=== PATIENT | female | born 1935 | race Caucasian/White ===

== ENCOUNTER 2018-09-08 17:55 | Inpatient (IN) | payer OTHER, BC ==
--- NOTE | 2018-09-08 18:54 | PDOC ---
Rapid Medical Evaluation Time Seen by Provider: 09/08/18 18:50 Medical Evaluation: Allergies Allergy/AdvReac Type Severity Reaction Status Date / Time sulfamethoxazole Allergy Verified 11/13/15 17:01 [From Bactrim] trimethoprim [From Bactrim] Allergy Verified 11/13/15 17:01 [id number] Allergy Severe Rash Uncoded 11/10/15 10:14 09/08/18 18:50 I have performed a brief in-person evaluation of this patient. The patient presents with a chief complaint of: sent by pmd for pneumonia. Patient reports lethargy and fever, recently treated for virus but still not better. Seen by md today' Denies coughing or shortness of breath or pain in upper back Pertinent physical exam findings are: NAD clear lungs bilaterally, diminished on bases Heart s1s2 I have ordered the following: chest xray The patient will proceed to the ED for further evaluation. Discharge Disposition - Referrals Referrals: González Johnson MD [Primary Care Provider] - - Patient Instructions - Post Discharge Activity
--- NOTE | 2018-09-08 19:38 | PDOC ---
Attending Attestation - Resident Resident Name: Dilan Alvarez - ED Attending Attestation I have performed the following: I have examined & evaluated the patient, The case was reviewed & discussed with the resident, I agree w/resident's findings & plan, Exceptions are as noted - Medical Decision Making 09/08/18 21:10 83 yo F sent to the ER for admission She was seen by her PMD today due to shortness of breath and cough 09/08/18 21:13 Selected Entries 09/08/18 18:53 Temperature 98.9 F Pulse Rate 94 H O2 Sat by Pulse 99 Oximetry (%) CXR : right sided pneumonia Will plan to admit per PMDs request <Evita Becerra - Last Filed: 09/08/18 21:10> - HPI HPI: 09/08/18 21:57 The patient is a 83 year old female, with a significant PMH of hypertension, hyperlipidemia, CAD, MIstents (2014) who presents to the emergency department with pneumonia . the patient states that she had been experiencing fevers and chills at home for about 10 days. She states that she went to see her PMD (Dr. Johnson) earlier today by which he told her that she had pneumonia and she should come in for further evaluation. She denies any wheezing, or cough. She denies any other symptoms. She denies any nausea, vomiting, diarrhea, constipation or urinary symptoms. She denies any chest pain, shortness of breath , headache or dizziness. The patient denies any other complaints. PCP: Dr. Johnson - Physicial Exam PE: 09/08/18 21:57 GENERAL: The patient is in no acute distress. NECK: Normal range of motion, supple without lymphadenopathy, JVD, or masses. LUNGS: Breath sounds equal, clear to auscultation bilaterally. No wheezes, and no crackles. HEART:Regular rate and rhythm, normal S1 and S2 without murmur, rub or gallop. ABDOMEN: Soft, nontender, normoactive bowel sounds. No guarding, no rebound. No masses palpable. EXTREMITIES: Normal range of motion, no edema. No clubbing or cyanosis. No erythema, or tenderness. NEUROLOGICAL: Cranial nerves II through XII grossly intact. Normal speech. No focal neurological deficits. MUSCULOSKELETAL: Back non-tender to palpation, no CVA tenderness SKIN: Warm, Dry, normal turgor, no rashes or lesions noted. Documentation prepared by Malcolm Zapata, acting as medical territory manager for Evita Becerra MD. <Malcolm Zapata - Last Filed: 09/08/18 21:57>
--- NOTE | 2018-09-08 19:39 | PDOC ---
History of Present Illness - General Chief Complaint: Respiratory Stated Complaint: WEAKNESS, PNEUMONIA Time Seen by Provider: 09/08/18 18:50 - History of Present Illness Initial Comments: 09/08/18 19:38 83 yo F with h/o HTN, HLD, CAD, [place] s/p stent placement (2015), CVA (2014) referred to ED by PMD for suspected PNA. Patient states that she has been experiencing fevers and chills beginning 08/29/18 (100.6 Tmax). Also endorses fatigue beginning at time of fevers. No identifiable triggers or alleviators. Recently seen at PMD today, and received call back from Dr. Johnson (PMD) for PNA seen on CXR taken today. Patient referred to ED by PMD. No recent sick contacts, hospital admissions. Tylenol daily with improvement in symptoms. Patient reports feeling better today than previous days. Patient denies N/V,night sweats, cough, palpitations, orthopnea, PND, leg pain/ swelling, CP, SOB, urinary complaints, abdominal pain, diarrhea, constipation, lightheadedness, weakness, sensory changes. PMHx: as noted above ROS: as noted SHx: Denies tobacco, IVDA. Social Etoh. Allergies: Bactrim -Hives PMD: Elizabeth Claudio Past History - Past Medical History Allergies/Adverse Reactions: Allergies Allergy/AdvReac Type Severity Reaction Status Date / Time trimethoprim [From Bactrim] Allergy Verified 09/08/18 18:53 Home Medications: Ambulatory Orders Sennosides [Senna] 8.6 mg PO DAILY PRN 09/11/13 Simvastatin [Zocor -] 20 mg PO HS 09/11/13 Metoprolol Tartrate [Lopressor -] 25 mg PO DAILY 02/27/15 Aspirin [Aspirin EC] 81 mg PO DAILY 11/10/15 Calcium Crb,Cit/D3/Min34/Lyla [Citracal + Bone Density Tablet] 1 each PO DAILY 11/10/15 Famotidine [Pepcid -] 10 mg PO DAILY 11/10/15 Multivit-Min/Iron/Folic/Lutein [Centrum Silver Women Tablet] 1 each PO DAILY Oxycodone HCl/Acetaminophen [Percocet 5-325 mg Tablet -] 1 tab PO Q4H PRN #20 tablet 11/13/15 Anemia: No Asthma: No Cancer: Yes (LEFT COLON) Cardiac Disorders: Yes ([place]) CVA: Yes ("mini") COPD: No Disorders: No HTN: Yes Hypercholesterolemia: Yes Liver Disease: No Thyroid Disease: No Other medical history: cardiac stent 02/2016 [facility] - Surgical History Abdominal Surgery: Yes (LEFT COLON RESECTION) Orthopedic Surgery: Yes (BILAT KNEE REPLACEMENTS) - Suicide/Smoking/Psychosocial Hx Smoking Status: No Smoking History: Never smoked Have you smoked in the past 12 months: No Number of Cigarettes Smoked Daily: 0 Hx Alcohol Use: No Drug/Substance Use Hx: No Substance Use Type: None Hx Substance Use Treatment: No Review of Systems - Review of Systems Comments:: 09/08/18 19:38 GENERAL/CONSTITUTIONAL: + Fatigue, No fever or chills. No weakness. HEAD, EYES, EARS, NOSE AND THROAT: No change in vision. No ear pain or discharge. No sore throat. CARDIOVASCULAR: No chest pain or shortness of breath RESPIRATORY: No cough, wheezing, or hemoptysis. GASTROINTESTINAL: No nausea, vomiting, diarrhea or constipation. GENITOURINARY: No dysuria, frequency, or change in urination. MUSCULOSKELETAL: No joint or muscle swelling or pain. No neck or back pain. SKIN: No rash NEUROLOGIC: No headache, vertigo, loss of consciousness, or change in strength/ sensation. ENDOCRINE: No increased thirst. No abnormal weight change HEMATOLOGIC/LYMPHATIC: No anemia, easy bleeding, or history of blood clots. ALLERGIC/IMMUNOLOGIC: No hives or skin allergy. *Physical Exam - Vital Signs Last Vital Signs Temp Pulse Resp BP Pulse Ox 98.9 F 94 H 16 165/78 99 09/08/18 18:53 09/08/18 18:53 09/08/18 18:53 09/08/18 18:53 09/08/18 18:53 - Physical Exam Comments: 09/08/18 19:38 GENERAL: Awake, alert, and fully oriented, in no acute distress HEAD: No signs of trauma, normocephalic, atraumatic EYES: PERRLA, EOMI, sclera anicteric, conjunctiva clear ENT: Hearing grossly normal, nares patent, oropharynx clear without exudates. Moist mucosa NECK: Normal ROM, supple, no lymphadenopathy, JVD, or masses LUNGS: No distress, speaks full sentences, clear to auscultation bilaterally HEART: Regular rate and rhythm, normal S1 and S2, no murmurs, rubs or gallops, peripheral pulses normal and equal bilaterally. EXTREMITIES : Normal inspection, Normal range of motion, no edema. No clubbing or cyanosis. SKIN: Warm, Dry, normal turgor, no rashes or lesions noted ED Treatment Course - LABORATORY CBC & Chemistry Diagram: 09/08/18 21:10 09/08/18 21:10 Medical Decision Making - Medical Decision Making 09/08/18 20:06 83 yo F with h/o HTN, HLD, CAD, [place] s/p stent placement (2015), CVA (2014) referred to ED by PMD for fevers, fatigue, and suspected PNA as seen on outside CXR. BP 165/78, vitals otherwise wnl. Physical exam unremarkable. R/o PNA. Will assess for other source of infection. Low suspicion ACS/NC. Low risk PE Weils criteria. Ed Course: CBC, CMP, CXR, Blood Cx. WBC: 14.4 09/08/18 21:53 Ceftriaxone 1 gm, Azithromycin 500 mg 09/08/18 22:23 CMP: Unremarkable 09/08/18 22:23 CXR: RUL opacification. Mass like opacity both lungs. Recommend f/u CT CHEST. Plan to admit. Kaur Marshall, S[place]zah. Patient admitted to [facility]. *DC/Admit/Observation/Transfer Diagnosis at time of Disposition: Pneumonia Qualifiers: Pneumonia type: due to unspecified organism Laterality: right Lung location: upper lobe of lung Qualified Code(s): J18.1 - Lobar pneumonia, unspecified organism - Discharge Dispostion Condition at time of disposition: Stable Decision to Admit order: Yes - Referrals Referrals: González Johnson MD [Primary Care Provider] - - Patient Instructions - Post Discharge Activity - Attestations Physician Attestion: 09/08/18 19:38 I attest to the information provided in this note.
[2018-09-08 21:35] LABS: BASO % 0.9 % (0-2.0); EOS % 2.1 % (0-4.5); HEMATOCRIT 38.5 % (32.4-45.2); HEMOGLOBIN 12.3 GM/dL (10.7-15.3); LYMPH % 11.2 % (8-40); MCH 30.3 pg (25.7-33.7); MEAN CELL VOLUME 94.7 fl (80-96); MEAN PLT VOLUME 9.1 fl (7.5-11.1); MONO % 8.5 % (3.8-10.2); NEUT % 77.3 % (42.8-82.8); PLATELET COUNT 300 K/MM3 (134-434); RBC 4.06 M/mm3 (3.60-5.2); RDW 13.9 % (11.6-15.6); WHITE BLOOD COUNT 14.4 K/mm3 (4.0-10.0)
[2018-09-08 21:47] LABS: INR 1.23 (0.83-1.09); PROTHROMBIN TIME (PATIENT) 14.6 SEC (9.7-13.0)
[2018-09-08 21:50] LABS: ACTIVATED PTT 26.4 SECONDS (25.2-36.5)
[2018-09-08] MEDS ORDERED: AZITHROMYCIN IVPB 500 MG in DEXTROSE 5%-WATER - 250 ML IVPB ONE (21:53)
[2018-09-08 22:08] LABS: ALBUMIN 2.3 g/dl (3.4-5.0); ALK PHOS 119 U/L (45-117); ANION GAP 6 MMOL/L (8-16); BILIRUBIN,TOTAL 0.4 mg/dL (0.2-1); BLOOD UREA NITROGEN 11 mg/dL (7-18); CALCIUM 8.9 mg/dL (8.5-10.1); CHLORIDE 103 mmol/L (98-107); CO2 28 mmol/L (21-32); CREATININE 0.5 mg/dL (0.55-1.3); GLUCOSE,RANDOM 86 mg/dL (74-106); POTASSIUM 4.4 mmol/L (3.5-5.1); SGOT/AST 42 U/L (15-37); SGPT/ALT 44 U/L (13-61); SODIUM 137 mmol/L (136-145); TOT PROT 6.6 g/dl (6.4-8.2)
[2018-09-08] MEDS ORDERED: cefTRIAXone SODIUM 1 GM VIAL ONE (23:12)
[2018-09-08] MEDS ORDERED: AZITHROMYCIN IVPB 500 MG/250 ML BAG IVPB ONE (23:12)
--- NOTE | 2018-09-08 23:27 | HP ---
CHIEF COMPLAINT: SOB, Cough, Fever, Chills PCP: Dr. Johnson HISTORY OF PRESENT ILLNESS: This is a 83 y/o woman with a past medical history of HTN, HLD, CVA, CAD, [place] s/ p stents (2014). Who was sent in by her PMD for admission for Pneumonia. Patient reports having fever and chills x10 days. Patient reports having SOB, increased fatigue and a non productive cough. Patient denies SCHNEIDER, dizziness, Palpitations, AP, N/V/D, constipation, dysuria. Patient denies recent sick contacts or travel. ER course was notable for: (1) WBC 14.4 (2) Chest Xray RUL Consolidation suspicious for Pneumonia, additional masslike opacities within both lungs (3) Recent Travel: No PAST MEDICAL HISTORY: See HPI PAST SURGICAL HISTORY: Cardiac Stents Social History: Smoking: Never Alcohol: None Drugs: None Resides with family Family History: Non-contributory Allergies trimethoprim [From Bactrim] Allergy (Verified 09/08/18 18:53) HOME MEDICATIONS: Home Medications Medication Instructions Recorded Sennosides [Senna] 8.6 mg PO DAILY PRN 09/11/13 Simvastatin [Zocor -] 20 mg PO HS 09/11/13 Metoprolol Tartrate [Lopressor -] 25 mg PO DAILY 02/27/15 Aspirin [Aspirin EC] 81 mg PO DAILY 11/10/15 Calcium Crb,Cit/D3/Min34/Lyla 1 each PO DAILY 11/10/15 [Citracal + Bone Density Tablet] Famotidine [Pepcid -] 10 mg PO DAILY 11/10/15 Multivit-Min/Iron/Folic/Lutein 1 each PO DAILY 11/10/15 [Centrum Silver Women Tablet] Oxycodone HCl/Acetaminophen 1 tab PO Q4H PRN #20 tablet 11/13/15 [Percocet 5-325 mg Tablet -] REVIEW OF SYSTEMS CONSTITUTIONAL: fever, chills, diaphoresis, fatigue Absent: generalized weakness, loss of appetite, weight change HEENT: Absent: rhinorrhea, nasal congestion, throat pain, throat swelling, difficulty swallowing, mouth swelling, ear pain, eye pain, visual changes CARDIOVASCULAR: Absent: chest pain, syncope, palpitations, irregular heart rate, lightheadedness , peripheral edema RESPIRATORY: cough, shortness of breath Absent: dyspnea on exertion, orthopnea, wheezing, stridor, hemoptysis GASTROINTESTINAL: Absent: abdominal pain, abdominal distension, nausea, vomiting, diarrhea, constipation, melena, hematochezia GENITOURINARY: Absent: dysuria, frequency, urgency, hesitancy, hematuria, flank pain, genital pain MUSCULOSKELETAL: back pain Absent: myalgia, arthralgia, joint swelling, neck pain SKIN: Absent: rash, itching, pallor HEMATOLOGIC/IMMUNOLOGIC: Absent: easy bleeding, easy bruising, lymphadenopathy, frequent infections ENDOCRINE: Absent: unexplained weight gain, unexplained weight loss, heat intolerance, cold intolerance NEUROLOGIC: Absent: headache, focal weakness or paresthesias, dizziness, unsteady gait, seizure, mental status changes, bladder or bowel incontinence PSYCHIATRIC: Absent: anxiety, depression, suicidal or homicidal ideation, hallucinations. PHYSICAL EXAMINATION Vital Signs - 24 hr 09/08/18 18:53 Temperature 98.9 F Pulse Rate 94 H Respiratory 16 Rate Blood Pressure 165/78 O2 Sat by Pulse 99 Oximetry (%) GENERAL: Awake, alert, and fully oriented, in no acute distress. HEAD: Normal with no signs of trauma. EYES: Pupils equal, round and reactive to light, extraocular movements intact, sclera anicteric, conjunctiva clear. No lid lag. EARS, NOSE, THROAT: Dry mucous membranes. Ears normal, nares patent, oropharynx clear without exudates. NECK: Normal range of motion, supple without lymphadenopathy, JVD, or masses. LUNGS: Breath sounds clear to auscultation bilaterally. No scattered wheezes and crackles. No accessory muscle use. HEART: Regular rate and rhythm, normal S1 and S2 without murmur, rub or gallop. ABDOMEN: Soft, nontender, not distended, normoactive bowel sounds, no guarding, no rebound, no masses. No hepatomegaly or splenomegaly. MUSCULOSKELETAL: Normal range of motion at all joints. No bony deformities or tenderness. No CVA tenderness. UPPER EXTREMITIES: 2+ pulses, warm, well-perfused. No cyanosis. No clubbing. No peripheral edema. LOWER EXTREMITIES: R- calf tenderness, 2+ pulses, warm, well-perfused. No L- calf tenderness. No peripheral edema. NEUROLOGICAL: Cranial nerves II-XII intact. Normal speech. Gait not observed. PSYCHIATRIC: Anxious, cooperative. Good eye contact. Appropriate mood and affect. SKIN: Warm, dry, normal turgor, no rashes or lesions noted, normal capillary refill. Laboratory Results - last 24 hr 09/08/18 09/08/18 09/08/18 21:10 21:10 21:10 WBC 14.4 H RBC 4.06 Hgb 12.3 Hct 38.5 MCV 94.7 MCH 30.3 MCHC 32.0 RDW 13.9 Plt Count 300 D MPV 9.1 Absolute Neuts (auto) 11.2 H Neutrophils % 77.3 Lymphocytes % 11.2 D Monocytes % 8.5 Eosinophils % 2.1 D Basophils % 0.9 Nucleated RBC % 0 PT with INR 14.60 H INR 1.23 H PTT (Actin FS) 26.4 Sodium 137 Potassium 4.4 Chloride 103 Carbon Dioxide 28 Anion Gap 6 L BUN 11 Creatinine 0.5 L Creat Clearance w eGFR > 60 Random Glucose 86 Calcium 8.9 Total Bilirubin 0.4 AST 42 H ALT 44 Alkaline Phosphatase 119 H Total Protein 6.6 Albumin 2.3 L ASSESSMENT/PLAN: This is a 83 y/o woman with a PMHx of: HTN, HLD, CVA, CAD, [place] (Stents 2014). Admitted for Community Acquired Pneumonia for further evaluation of their emergent condition. Plan: FEN PO fluids as tolerated Replete lytes prn Low Na Diet DVT ppx OOB SCDs Heparin SQ Code Status: Full Code Dispo: Requires Inpatient Care Problem List - Problem (1) Community acquired pneumonia Assessment/Plan: CURB65 Score 2 Chest Xray- RUL Pneumonia, ?opacities B/L Ceftriaxone, Azithromycin given in ED will continue for CAP Appreciate ID consult Blood cultures-pending Urine Legionellla Rapid Flu- pending Monitor CBC, BMP Monitor Vitals Code(s): J18.9 - PNEUMONIA, UNSPECIFIED ORGANISM (2) HTN (hypertension) Assessment/Plan: stable Monitor BP Continue home med Monitor renal function Code(s): I10 - ESSENTIAL (PRIMARY) HYPERTENSION (3) HLD (hyperlipidemia) Assessment/Plan: stable Continue home med Code(s): E78.5 - HYPERLIPIDEMIA, UNSPECIFIED (4) CAD (coronary artery disease) Assessment/Plan: stable Continue home meds Code(s): I25.10 - ATHSCL HEART DISEASE OF [place] CORONARY ARTERY W/O ANG PCTRS (5) Right calf pain Assessment/Plan: Patient reports acute right calf pain WELLS Score 1 Doppler of RLE r/o DVT Code(s): M79.661 - PAIN IN RIGHT LOWER LEG Visit type - Emergency Visit Emergency Visit: Yes ED Registration Date: 09/08/18 Care time: The patient presented to the Emergency Department on the above date and was hospitalized for further evaluation of their emergent condition. - New Patient This patient is new to me today: Yes Date on this admission: 09/08/18 - Critical Care Critical Care patient: No
[2018-09-09 03:17] VITALS: BMI 28.1
[2018-09-09 07:56] LABS: BASO % 0.5 % (0-2.0); EOS % 2.6 % (0-4.5); HEMATOCRIT 36.9 % (32.4-45.2); LYMPH % 11.3 % (8-40); MCH 30.7 pg (25.7-33.7); MCHC 32.4 g/dl (32.0-36.0); MEAN CELL VOLUME 94.6 fl (80-96); MEAN PLT VOLUME 8.4 fl (7.5-11.1); NEUT % 75.6 % (42.8-82.8); PLATELET COUNT 277 K/MM3 (134-434); RDW 13.3 % (11.6-15.6); WHITE BLOOD COUNT 14.2 K/mm3 (4.0-10.0)
[2018-09-09 08:33] LABS: ANION GAP 8 MMOL/L (8-16); BLOOD UREA NITROGEN 9 mg/dL (7-18); CALCIUM 8.7 mg/dL (8.5-10.1); CHLORIDE 106 mmol/L (98-107); CO2 26 mmol/L (21-32); CREATININE 0.5 mg/dL (0.55-1.3); GLUCOSE,RANDOM 104 mg/dL (74-106); POTASSIUM 3.8 mmol/L (3.5-5.1); SODIUM 139 mmol/L (136-145)
--- NOTE | 2018-09-09 10:58 | CON.ID ---
Consult Consult Specialty:: infectious diseases Referred by:: Reason for Consultation:: pneumonia - History of Present Illness Chief Complaint: fever.weakness History of Present Illness: 83 y/o woman with a past medical history of HTN, HLD, CVA, CAD, [place] s/p stents ( 2014). was send to the hospital because she was found to ahve pneumonia according tot he history patient has been feeling weak since last 2 weeks and reports ahving fever and chills .she mentions that she is also constipated and has been having non productive cough denies any sick contacts patient was worked up in the office and then send here as she was not getting better at all according to her currently patient feels weak otherwise she is doing ok xray done shows rt upper lobe pna probability - History Source History Provided By: Patient, Family Member Limitations to Obtaining History: Language Barrier - Alcohol/Substance Use Hx Alcohol Use: No - Smoking History Smoking history: Never smoked Have you smoked in the past 12 months: No Aproximately how many cigarettes per day: 0 - Social History Occupation: Retired History of Recent Travel: No Home Medications - Allergies Allergies/Adverse Reactions: Allergies Allergy/AdvReac Type Severity Reaction Status Date / Time trimethoprim [From Bactrim] Allergy Verified 09/09/18 01:32 - Home Medications Home Medications: Ambulatory Orders Sennosides [Senna] 8.6 mg PO DAILY PRN 09/11/13 Simvastatin [Zocor -] 20 mg PO HS 09/11/13 Metoprolol Tartrate [Lopressor -] 25 mg PO DAILY 02/27/15 Aspirin [Aspirin EC] 81 mg PO DAILY 11/10/15 Calcium Crb,Cit/D3/Min34/Lyla [Citracal + Bone Density Tablet] 1 each PO DAILY 11/10/15 Famotidine [Pepcid -] 10 mg PO DAILY 11/10/15 Multivit-Min/Iron/Folic/Lutein [Centrum Silver Women Tablet] 1 each PO DAILY Oxycodone HCl/Acetaminophen [Percocet 5-325 mg Tablet -] 1 tab PO Q4H PRN #20 tablet 11/13/15 Review of Systems - Review of Systems Constitutional: reports: Fever, Weakness Eyes: reports: No Symptoms HENT: reports: No Symptoms Neck: reports: No Symptoms Cardiovascular: reports: No Symptoms Respiratory: reports: Cough Gastrointestinal: reports: No Symptoms Genitourinary: reports: No Symptoms Musculoskeletal: reports: No Symptoms Integumentary: reports: No Symptoms Neurological: reports: No Symptoms Endocrine: reports: No Symptoms Hematology/Lymphatic: reports: No Symptoms Psychiatric: reports: No Symptoms Physical Exam Vital Signs: Vital Signs Temperature 99.1 F 09/09/18 01:13 Pulse Rate 84 09/09/18 01:13 Respiratory Rate 16 09/09/18 02:50 Blood Pressure 143/78 09/09/18 01:13 O2 Sat by Pulse Oximetry (%) 97 09/09/18 02:50 Constitutional: Yes: Well Nourished, No Distress, Calm Eyes: Yes: Conjunctiva Clear HENT: Yes: Atraumatic Cardiovascular: Yes: Regular Rate and Rhythm Respiratory: Yes: Regular, Rhonchi (bilaterally) Gastrointestinal: Yes: Normal Bowel Sounds, Soft Musculoskeletal: Yes: WNL Extremities: Yes: WNL Neurological: Yes: Alert, Oriented Psychiatric: Yes: Alert, Oriented Labs: CBC, BMP 09/09/18 06:30 09/09/18 06:30 Imaging - Results Chest X-ray: Report Reviewed, Image Reviewed Cat Scan: Image Reviewed (report awaited) Assessment/Plan this 83 y/o female coming wiht weakness cough and wih findings in the lungs probably pneumonia now on ceftriaxone and zithro has leukocytosis pna leukocytosis htn hld plan continue ceftriaxone and zithro if wbc does not go down will switch to zosyn incentive estrada await for cx reports monitor wbc rest as per the team
[2018-09-09] MEDS: AZITHROMYCIN IVPB 500 MG/250 ML BAG IVPB SCH (11:06)
[2018-09-09] MEDS: HEPARIN NA (PORCINE) 5,000 UNITS/ML 1ML VIAL SQ SCH ×2 (11:07→21:37)
[2018-09-09] MEDS: ASPIRIN COATED 81 MG TABLET.EC PO SCH (11:38)
[2018-09-09] MEDS: METOPROLOL TARTRATE 25 MG TABLET (FP) PO SCH (11:38)
--- NOTE | 2018-09-09 12:28 | PN ---
Progress Note, Physician Chief Complaint: Pt sitting in bed in no acute distress. Reports fatigue over the last few weeks. Denies any chest pain, sob, cough, n/v/d - Current Medication List Current Medications: Active Medications Artificial Tears (Artificial Tears) 1 drop OU BID PRN PRN Reason: DRY SKIN Aspirin (Ecotrin -) 81 mg PO DAILY [facility] Last Admin: 09/09/18 11:38 Dose: 81 mg Atorvastatin Calcium (Lipitor -) 10 mg PO HS [facility] Fluticasone Propionate (Flonase -) 1 spray NS DAILY [facility] Heparin Sodium (Porcine) (Heparin -) 5,000 unit SQ BID [facility] Last Admin: 09/09/18 11:07 Dose: 5,000 unit Azithromycin (Zithromax 500mg Ivpb (Pre-Docked)) 500 mg in 250 mls @ 250 mls/ hr IVPB DAILY [facility] Last Admin: 09/09/18 11:06 Dose: 250 mls/hr Ceftriaxone Sodium 1 gm/ (Dextrose) 50 mls @ 200 mls/hr IVPB DAILY [facility]; Protocol Metoprolol Tartrate (Lopressor -) 25 mg PO DAILY [facility] Last Admin: 09/09/18 11:38 Dose: 25 mg - Objective Vital Signs: Vital Signs Temperature 99.1 F 09/09/18 01:13 Pulse Rate 84 09/09/18 01:13 Respiratory Rate 16 09/09/18 02:50 Blood Pressure 143/78 09/09/18 01:13 O2 Sat by Pulse Oximetry (%) 97 09/09/18 02:50 Constitutional: Yes: Well Nourished, No Distress, Anxious Cardiovascular: Yes: WNL, Regular Rate and Rhythm. No: Murmur, Rub Respiratory: Yes: WNL, Regular, CTA Bilaterally. No: SOB, Tachypnea, Wheezes Gastrointestinal: Yes: WNL, Normal Bowel Sounds, Soft. No: Distention, Tenderness Genitourinary: Yes: WNL Edema: Yes Edema: LLE: Trace, RLE: Trace Neurological: Yes: WNL, Alert, Oriented Psychiatric: Yes: WNL, Alert, Oriented Labs: CBC, BMP 09/09/18 06:30 09/09/18 06:30 INR, PTT INR 1.23 (0.83-1.09) H 09/08/18 21:10 Problem List - Problems (1) Community acquired pneumonia Assessment/Plan: RUL infiltrate, multilobar opacities on xray fever/chills/fatigue prior to admission chest CT pending wbc 14k, hemodynamically stable azithromycin, ceftriaxone day 2 urine legionella neg, blood cultures pending transition to PO antibx if afebrile for 72 hours with improvement in wbc count ID following Code(s): J18.9 - PNEUMONIA, UNSPECIFIED ORGANISM Qualifiers: Laterality: right Lung location: upper lobe of lung Qualified Code(s): J18.1 - Lobar pneumonia, unspecified organism (2) CAD (coronary artery disease) Assessment/Plan: s/p PCI, stent RCA no acute ACS continue asa,bb, statin Code(s): I25.10 - ATHSCL HEART DISEASE OF [place] CORONARY ARTERY W/O ANG PCTRS Qualifiers: [place] vs. transplanted heart: [place] heart Associated angina: without angina (3) HTN (hypertension) Assessment/Plan: controlled continue metoprolol monitor Code(s): I10 - ESSENTIAL (PRIMARY) HYPERTENSION Qualifiers: Hypertension type: essential hypertension Qualified Code(s): I10 - Essential (primary) hypertension (4) HLD (hyperlipidemia) Assessment/Plan: stable continue statin Code(s): E78.5 - HYPERLIPIDEMIA, UNSPECIFIED (5) GERD (gastroesophageal reflux disease) Assessment/Plan: stable continue ranitidine Code(s): K21.9 - GASTRO-ESOPHAGEAL REFLUX DISEASE WITHOUT ESOPHAGITIS Qualifiers: Esophagitis presence: without esophagitis Qualified Code(s): K21.9 - Gastro -esophageal reflux disease without esophagitis
[2018-09-09] MEDS ORDERED: DEXTROSE 5%-WATER - 50 ML IVPB ONE (13:04)
[2018-09-09] MEDS ORDERED: cefTRIAXone SODIUM 1 GM VIAL ONE (13:04)
[2018-09-09] MEDS: CEFTRIAXONE 1 GM in DEXTROSE 5%-WATER - 50 ML IVPB SCH (13:11)
[2018-09-09] MEDS ORDERED: PT OWN MED DRAWER 7, Y5N ONE ×3 (14:13→21:37)
[2018-09-09] MEDS: FLUTICASONE PROP 0.05% 16 GM NASAL SPRAY NS SCH (14:54)
[2018-09-09] MEDS: ARTIFICIAL TEARS (POLYVINYL ALCOHOL) OPTH DROPS OU PRN ×2 (14:55→21:42)
[2018-09-09] MEDS: ATORVASTATIN CA 10 MG TABLET (FP) PO SCH (21:41)
[2018-09-10 07:25] LABS: BASO % 0.5 % (0-2.0); EOS % 2.2 % (0-4.5); HEMATOCRIT 36.6 % (32.4-45.2); HEMOGLOBIN 11.9 GM/dL (10.7-15.3); LYMPH % 10.4 % (8-40); MCH 30.4 pg (25.7-33.7); MCHC 32.4 g/dl (32.0-36.0); MEAN CELL VOLUME 93.9 fl (80-96); MEAN PLT VOLUME 8.3 fl (7.5-11.1); MONO % 9.6 % (3.8-10.2); NEUT % 77.3 % (42.8-82.8); PLATELET COUNT 298 K/MM3 (134-434); RDW 13.5 % (11.6-15.6); WHITE BLOOD COUNT 15.4 K/mm3 (4.0-10.0)
[2018-09-10 07:33] LABS: ANION GAP 6 MMOL/L (8-16); BLOOD UREA NITROGEN 13 mg/dL (7-18); CALCIUM 8.3 mg/dL (8.5-10.1); CHLORIDE 105 mmol/L (98-107); CO2 26 mmol/L (21-32); CREATININE 0.6 mg/dL (0.55-1.3); GLUCOSE,RANDOM 135 mg/dL (74-106); POTASSIUM 4.1 mmol/L (3.5-5.1); SODIUM 138 mmol/L (136-145)
[2018-09-10] MEDS ORDERED: PT OWN MED DRAWER 7, Y5N ONE ×2 (09:08→22:20)
[2018-09-10] MEDS ORDERED: cefTRIAXone SODIUM 1 GM VIAL ONE (09:09)
[2018-09-10] MEDS ORDERED: DEXTROSE 5%-WATER - 50 ML IVPB ONE ×3 (09:09→17:00)
[2018-09-10] MEDS: ASPIRIN COATED 81 MG TABLET.EC PO SCH (09:14)
[2018-09-10] MEDS: METOPROLOL TARTRATE 25 MG TABLET (FP) PO SCH (09:14)
[2018-09-10] MEDS: RANITIDINE HCL 150 MG TABLET (FP) PO SCH (09:14)
[2018-09-10] MEDS: CEFTRIAXONE 1 GM in DEXTROSE 5%-WATER - 50 ML IVPB SCH (09:14)
[2018-09-10] MEDS: FLUTICASONE PROP 0.05% 16 GM NASAL SPRAY NS SCH (09:16)
[2018-09-10] MEDS: HEPARIN NA (PORCINE) 5,000 UNITS/ML 1ML VIAL SQ SCH ×2 (09:17→22:00)
[2018-09-10] MEDS: AZITHROMYCIN IVPB 500 MG/250 ML BAG IVPB SCH (10:02)
--- NOTE | 2018-09-10 11:09 | PN ---
Progress Note, Physician Chief Complaint: Ms Gomez denies cp, sob, n/v. Complains of constipation. - Current Medication List Current Medications: Active Medications Artificial Tears (Artificial Tears) 1 drop OU BID PRN PRN Reason: DRY SKIN Last Admin: 09/09/18 21:42 Dose: 1 drop Aspirin (Ecotrin -) 81 mg PO DAILY [facility] Last Admin: 09/10/18 09:14 Dose: 81 mg Atorvastatin Calcium (Lipitor -) 10 mg PO HS [facility] Last Admin: 09/09/18 21:41 Dose: 10 mg Fluticasone Propionate (Flonase -) 1 spray NS DAILY [facility] Last Admin: 09/10/18 09:16 Dose: 1 spray Heparin Sodium (Porcine) (Heparin -) 5,000 unit SQ BID [facility] Last Admin: 09/10/18 09:17 Dose: 5,000 unit Azithromycin (Zithromax 500mg Ivpb (Pre-Docked)) 500 mg in 250 mls @ 250 mls/ hr IVPB DAILY [facility] Last Admin: 09/10/18 10:02 Dose: 250 mls/hr Ceftriaxone Sodium 1 gm/ (Dextrose) 50 mls @ 200 mls/hr IVPB DAILY [facility]; Protocol Last Admin: 09/10/18 09:14 Dose: 200 mls/hr Metoprolol Tartrate (Lopressor -) 25 mg PO DAILY [facility] Last Admin: 09/10/18 09:14 Dose: 25 mg Ranitidine HCl (Zantac -) 150 mg PO DAILY [facility] Last Admin: 09/10/18 09:14 Dose: 150 mg - Objective Vital Signs: Vital Signs Temperature 37.2 C 09/10/18 05:00 Pulse Rate 106 H 09/10/18 05:00 Respiratory Rate 18 09/10/18 05:00 Blood Pressure 155/87 09/10/18 05:00 O2 Sat by Pulse Oximetry (%) 98 09/09/18 21:00 Constitutional: Yes: Well Nourished, No Distress, Anxious Cardiovascular: Yes: Regular Rate and Rhythm. No: Gallop, Murmur, Rub Respiratory: Yes: Regular, CTA Bilaterally. No: Rales, Rhonchi, Wheezes Gastrointestinal: Yes: Normal Bowel Sounds, Soft. No: Distention, Tenderness Extremities: Yes: WNL Edema: No Labs: CBC, BMP 09/10/18 06:45 09/10/18 06:45 INR, PTT INR 1.23 (0.83-1.09) H 09/08/18 21:10 Assessment/Plan (1) Community acquired pneumonia Assessment/Plan: -leukocytosis increasing -CT scan reviewed -clinically patient is feeling well -afebrile -ID following -continue rocephin and zithromax currently but may be switched to zosyn per last ID note Code(s): J18.9 - PNEUMONIA, UNSPECIFIED ORGANISM Qualifiers: Laterality: right Lung location: upper lobe of lung Qualified Code(s): J18.1 - Lobar pneumonia, unspecified organism (2) CAD (coronary artery disease) Assessment/Plan: -quiescent -continue current regimen Code(s): I25.10 - ATHSCL HEART DISEASE OF [place] CORONARY ARTERY W/O ANG PCTRS Qualifiers: [place] vs. transplanted heart: [place] heart Associated angina: without angina (3) HTN (hypertension) Assessment/Plan: -continue metoprolol Code(s): I10 - ESSENTIAL (PRIMARY) HYPERTENSION Qualifiers: Hypertension type: essential hypertension Qualified Code(s): I10 - Essential (primary) hypertension (4) HLD (hyperlipidemia) Assessment/Plan: -continue statin Code(s): E78.5 - HYPERLIPIDEMIA, UNSPECIFIED (5) GERD (gastroesophageal reflux disease) Assessment/Plan: -continue ranitidine Code(s): K21.9 - GASTRO-ESOPHAGEAL REFLUX DISEASE WITHOUT ESOPHAGITIS Qualifiers: Esophagitis presence: without esophagitis Qualified Code(s): K21.9 - Gastro -esophageal reflux disease without esophagitis (6) Constipation -add senokot for constipation
[2018-09-10] MEDS: SENNOSIDES/DOCUSATE COMBO (SENNA PLUS) TABLET (UD) PO SCH ×2 (11:51→22:00)
--- NOTE | 2018-09-10 14:08 | PN ---
Progress Note, Physician History of Present Illness: patient stable no complaints wbc has increased - Current Medication List Current Medications: Active Medications Artificial Tears (Artificial Tears) 1 drop OU BID PRN PRN Reason: DRY SKIN Last Admin: 09/09/18 21:42 Dose: 1 drop Aspirin (Ecotrin -) 81 mg PO DAILY [facility] Last Admin: 09/10/18 09:14 Dose: 81 mg Atorvastatin Calcium (Lipitor -) 10 mg PO HS [facility] Last Admin: 09/09/18 21:41 Dose: 10 mg Fluticasone Propionate (Flonase -) 1 spray NS DAILY [facility] Last Admin: 09/10/18 09:16 Dose: 1 spray Heparin Sodium (Porcine) (Heparin -) 5,000 unit SQ BID [facility] Last Admin: 09/10/18 09:17 Dose: 5,000 unit Azithromycin (Zithromax 500mg Ivpb (Pre-Docked)) 500 mg in 250 mls @ 250 mls/ hr IVPB DAILY [facility] Last Admin: 09/10/18 10:02 Dose: 250 mls/hr Piperacillin Sod/Tazobactam (Sod 3.375 gm/ Dextrose) 50 mls @ 100 mls/hr IVPB Q8H-IV [facility]; Protocol Metoprolol Tartrate (Lopressor -) 25 mg PO DAILY [facility] Last Admin: 09/10/18 09:14 Dose: 25 mg Ranitidine HCl (Zantac -) 150 mg PO DAILY [facility] Last Admin: 09/10/18 09:14 Dose: 150 mg Senna/Docusate Sodium (Pericolace -) 1 tablet PO BID [facility] Last Admin: 09/10/18 11:51 Dose: 1 tablet - Objective Vital Signs: Vital Signs Temperature 98.8 F 09/10/18 08:25 Pulse Rate 96 H 09/10/18 08:25 Respiratory Rate 18 09/10/18 08:25 Blood Pressure 150/72 09/10/18 08:25 O2 Sat by Pulse Oximetry (%) 98 09/09/18 21:00 Constitutional: Yes: No Distress, Calm Cardiovascular: Yes: Regular Rate and Rhythm Respiratory: Yes: Regular, Poor Air Entry (bases) Gastrointestinal: Yes: Normal Bowel Sounds, Soft Musculoskeletal: Yes: WNL Extremities: Yes: WNL Neurological: Yes: Alert, Oriented Psychiatric: Yes: Alert, Oriented Labs: CBC, BMP 09/10/18 06:45 09/10/18 06:45 INR, PTT INR 1.23 (0.83-1.09) H 09/08/18 21:10 Assessment/Plan pna leukocytosis htn hld plan switched to zosyn incentive estrada monitor wbc rest as per the team
[2018-09-10] MEDS ORDERED: PIPERACILLIN/TAZOBACTAM 3.375 GM VIAL IVPB ONE ×2 (14:17→17:00)
[2018-09-10] MEDS: PIPERACILLIN/TAZOB 3.375 GM 3.375 GM in DEXTROSE 5%-WATER - 50 ML IVPB SCH ×2 (14:21→18:05)
[2018-09-10] MEDS: ATORVASTATIN CA 10 MG TABLET (FP) PO SCH (22:00)
[2018-09-10] MEDS: ARTIFICIAL TEARS (POLYVINYL ALCOHOL) OPTH DROPS OU PRN (22:37)
[2018-09-11] MEDS ORDERED: DEXTROSE 5%-WATER - 50 ML IVPB ONE ×3 (01:25→17:05)
[2018-09-11] MEDS ORDERED: PIPERACILLIN/TAZOBACTAM 3.375 GM VIAL IVPB ONE ×3 (01:25→17:05)
[2018-09-11] MEDS: PIPERACILLIN/TAZOB 3.375 GM 3.375 GM in DEXTROSE 5%-WATER - 50 ML IVPB SCH ×3 (02:01→17:17)
[2018-09-11 07:44] LABS: BASO % 0.4 % (0-2.0); EOS % 3.5 % (0-4.5); HEMATOCRIT 36.6 % (32.4-45.2); HEMOGLOBIN 11.6 GM/dL (10.7-15.3); LYMPH % 11.6 % (8-40); MCH 30.3 pg (25.7-33.7); MCHC 31.8 g/dl (32.0-36.0); MEAN CELL VOLUME 95.4 fl (80-96); MEAN PLT VOLUME 8.3 fl (7.5-11.1); MONO % 11.9 % (3.8-10.2); NEUT % 72.6 % (42.8-82.8); PLATELET COUNT 283 K/MM3 (134-434); RBC 3.83 M/mm3 (3.60-5.2); RDW 13.5 % (11.6-15.6); WHITE BLOOD COUNT 12.9 K/mm3 (4.0-10.0)
[2018-09-11 08:42] LABS: ANION GAP 8 MMOL/L (8-16); BLOOD UREA NITROGEN 17 mg/dL (7-18); CALCIUM 8.2 mg/dL (8.5-10.1); CHLORIDE 104 mmol/L (98-107); CO2 26 mmol/L (21-32); CREATININE 0.7 mg/dL (0.55-1.3); GLUCOSE,RANDOM 108 mg/dL (74-106); MAGNESIUM 2.5 mg/dL (1.8-2.4); PHOSPHOROUS 3.9 mg/dL (2.5-4.9); POTASSIUM 4.2 mmol/L (3.5-5.1); SODIUM 139 mmol/L (136-145)
[2018-09-11] MEDS: ASPIRIN COATED 81 MG TABLET.EC PO SCH (09:13)
[2018-09-11] MEDS: METOPROLOL TARTRATE 25 MG TABLET (FP) PO SCH (09:13)
[2018-09-11] MEDS: RANITIDINE HCL 150 MG TABLET (FP) PO SCH (09:14)
[2018-09-11] MEDS: SENNOSIDES/DOCUSATE COMBO (SENNA PLUS) TABLET (UD) PO SCH ×2 (09:14→21:01)
[2018-09-11] MEDS: FLUTICASONE PROP 0.05% 16 GM NASAL SPRAY NS SCH (09:15)
[2018-09-11] MEDS: HEPARIN NA (PORCINE) 5,000 UNITS/ML 1ML VIAL SQ SCH ×2 (09:15→21:01)
[2018-09-11] MEDS: AZITHROMYCIN IVPB 500 MG/250 ML BAG IVPB SCH (10:08)
--- NOTE | 2018-09-11 13:32 | PN ---
Progress Note, Physician Chief Complaint: Ms Gomez denies cp, sob, n/v. Remains anxious. - Current Medication List Current Medications: Active Medications Artificial Tears (Artificial Tears) 1 drop OU BID PRN PRN Reason: DRY SKIN Last Admin: 09/10/18 22:37 Dose: 1 drop Aspirin (Ecotrin -) 81 mg PO DAILY [facility] Last Admin: 09/11/18 09:13 Dose: 81 mg Atorvastatin Calcium (Lipitor -) 10 mg PO HS [facility] Last Admin: 09/10/18 22:00 Dose: 10 mg Fluticasone Propionate (Flonase -) 1 spray NS DAILY [facility] Last Admin: 09/11/18 09:15 Dose: 1 spray Heparin Sodium (Porcine) (Heparin -) 5,000 unit SQ BID [facility] Last Admin: 09/11/18 09:15 Dose: 5,000 unit Azithromycin (Zithromax 500mg Ivpb (Pre-Docked)) 500 mg in 250 mls @ 250 mls/ hr IVPB DAILY [facility] Last Admin: 09/11/18 10:08 Dose: 250 mls/hr Piperacillin Sod/Tazobactam (Sod 3.375 gm/ Dextrose) 50 mls @ 100 mls/hr IVPB Q8H-IV [facility]; Protocol Last Admin: 09/11/18 09:14 Dose: 100 mls/hr Metoprolol Tartrate (Lopressor -) 25 mg PO DAILY [facility] Last Admin: 09/11/18 09:13 Dose: 25 mg Ranitidine HCl (Zantac -) 150 mg PO DAILY [facility] Last Admin: 09/11/18 09:14 Dose: 150 mg Senna/Docusate Sodium (Pericolace -) 1 tablet PO BID [facility] Last Admin: 09/11/18 09:14 Dose: 1 tablet - Objective Vital Signs: Vital Signs Temperature 37.6 C H 09/11/18 08:40 Pulse Rate 101 H 09/11/18 08:40 Respiratory Rate 22 H 09/11/18 08:40 Blood Pressure 146/82 09/11/18 08:40 O2 Sat by Pulse Oximetry (%) 92 L 09/10/18 21:00 Constitutional: Yes: No Distress, Anxious Cardiovascular: Yes: Regular Rate and Rhythm. No: Gallop, Murmur, Rub Respiratory: Yes: Regular, CTA Bilaterally. No: Rales, Rhonchi, Wheezes Gastrointestinal: Yes: Normal Bowel Sounds, Soft. No: Distention, Tenderness Extremities: Yes: WNL Edema: No Labs: CBC, BMP 09/11/18 07:00 09/11/18 07:00 INR, PTT INR 1.23 (0.83-1.09) H 09/08/18 21:10 Assessment/Plan (1) Community acquired pneumonia Assessment/Plan: -ID note reviewed -changed to zosyn secondary to leukocytosis -leukocytosis improved -antibiotic course per ID Code(s): J18.9 - PNEUMONIA, UNSPECIFIED ORGANISM Qualifiers: Laterality: right Lung location: upper lobe of lung Qualified Code(s): J18.1 - Lobar pneumonia, unspecified organism (2) CAD (coronary artery disease) Assessment/Plan: -quiescent -continue current regimen Code(s): I25.10 - ATHSCL HEART DISEASE OF [place] CORONARY ARTERY W/O ANG PCTRS Qualifiers: [place] vs. transplanted heart: [place] heart Associated angina: without angina (3) HTN (hypertension) Assessment/Plan: -continue metoprolol Code(s): I10 - ESSENTIAL (PRIMARY) HYPERTENSION Qualifiers: Hypertension type: essential hypertension Qualified Code(s): I10 - Essential (primary) hypertension (4) HLD (hyperlipidemia) Assessment/Plan: -continue statin Code(s): E78.5 - HYPERLIPIDEMIA, UNSPECIFIED (5) GERD (gastroesophageal reflux disease) Assessment/Plan: -continue ranitidine Code(s): K21.9 - GASTRO-ESOPHAGEAL REFLUX DISEASE WITHOUT ESOPHAGITIS Qualifiers: Esophagitis presence: without esophagitis Qualified Code(s): K21.9 - Gastro -esophageal reflux disease without esophagitis (6) Constipation -continue senokot
--- NOTE | 2018-09-11 14:35 | PN ---
Progress Note, Physician History of Present Illness: patient stable no comfortable - Current Medication List Current Medications: Active Medications Artificial Tears (Artificial Tears) 1 drop OU BID PRN PRN Reason: DRY SKIN Last Admin: 09/10/18 22:37 Dose: 1 drop Aspirin (Ecotrin -) 81 mg PO DAILY [facility] Last Admin: 09/11/18 09:13 Dose: 81 mg Atorvastatin Calcium (Lipitor -) 10 mg PO HS [facility] Last Admin: 09/10/18 22:00 Dose: 10 mg Fluticasone Propionate (Flonase -) 1 spray NS DAILY [facility] Last Admin: 09/11/18 09:15 Dose: 1 spray Heparin Sodium (Porcine) (Heparin -) 5,000 unit SQ BID [facility] Last Admin: 09/11/18 09:15 Dose: 5,000 unit Azithromycin (Zithromax 500mg Ivpb (Pre-Docked)) 500 mg in 250 mls @ 250 mls/ hr IVPB DAILY [facility] Last Admin: 09/11/18 10:08 Dose: 250 mls/hr Piperacillin Sod/Tazobactam (Sod 3.375 gm/ Dextrose) 50 mls @ 100 mls/hr IVPB Q8H-IV [facility]; Protocol Last Admin: 09/11/18 09:14 Dose: 100 mls/hr Metoprolol Tartrate (Lopressor -) 25 mg PO DAILY [facility] Last Admin: 09/11/18 09:13 Dose: 25 mg Ranitidine HCl (Zantac -) 150 mg PO DAILY [facility] Last Admin: 09/11/18 09:14 Dose: 150 mg Senna/Docusate Sodium (Pericolace -) 1 tablet PO BID [facility] Last Admin: 09/11/18 09:14 Dose: 1 tablet - Objective Vital Signs: Vital Signs Temperature 99.7 F H 09/11/18 08:40 Pulse Rate 101 H 09/11/18 08:40 Respiratory Rate 22 H 09/11/18 08:40 Blood Pressure 146/82 09/11/18 08:40 O2 Sat by Pulse Oximetry (%) 92 L 09/10/18 21:00 Constitutional: Yes: No Distress, Calm Cardiovascular: Yes: Regular Rate and Rhythm Respiratory: Yes: Regular, CTA Bilaterally Gastrointestinal: Yes: Normal Bowel Sounds, Soft Musculoskeletal: Yes: WNL Extremities: Yes: WNL Neurological: Yes: Alert, Oriented Psychiatric: Yes: Alert, Oriented Labs: CBC, BMP 09/11/18 07:00 09/11/18 07:00 INR, PTT INR 1.23 (0.83-1.09) H 09/08/18 21:10 Assessment/Plan pna leukocytosis htn hld patients wbc is coming down plan continue zosyn incentive estrada monitor wbc rest as per the team
[2018-09-11] MEDS: ATORVASTATIN CA 10 MG TABLET (FP) PO SCH (21:01)
[2018-09-12] MEDS ORDERED: PIPERACILLIN/TAZOBACTAM 3.375 GM VIAL IVPB ONE ×3 (01:28→17:12)
[2018-09-12] MEDS ORDERED: DEXTROSE 5%-WATER - 50 ML IVPB ONE ×3 (01:28→17:13)
[2018-09-12] MEDS: PIPERACILLIN/TAZOB 3.375 GM 3.375 GM in DEXTROSE 5%-WATER - 50 ML IVPB SCH ×3 (01:40→17:28)
[2018-09-12] MEDS ORDERED: PT OWN MED DRAWER 7, Y5N ONE ×4 (02:46→14:27)
[2018-09-12] MEDS: ARTIFICIAL TEARS (POLYVINYL ALCOHOL) OPTH DROPS OU PRN ×3 (02:50→21:21)
[2018-09-12 08:36] LABS: BASO % 0.6 % (0-2.0); EOS % 3.8 % (0-4.5); HEMATOCRIT 36.4 % (32.4-45.2); HEMOGLOBIN 11.6 GM/dL (10.7-15.3); LYMPH % 11.4 % (8-40); MCH 30.4 pg (25.7-33.7); MCHC 31.9 g/dl (32.0-36.0); MEAN CELL VOLUME 95.2 fl (80-96); MEAN PLT VOLUME 8.4 fl (7.5-11.1); MONO % 10.7 % (3.8-10.2); NEUT % 73.5 % (42.8-82.8); PLATELET COUNT 297 K/MM3 (134-434); RBC 3.82 M/mm3 (3.60-5.2); RDW 13.8 % (11.6-15.6); WHITE BLOOD COUNT 12.6 K/mm3 (4.0-10.0)
[2018-09-12 08:56] LABS: ANION GAP 7 MMOL/L (8-16); BLOOD UREA NITROGEN 15 mg/dL (7-18); CALCIUM 8.4 mg/dL (8.5-10.1); CHLORIDE 106 mmol/L (98-107); CO2 27 mmol/L (21-32); CREATININE 0.7 mg/dL (0.55-1.3); GLUCOSE,RANDOM 134 mg/dL (74-106); MAGNESIUM 2.3 mg/dL (1.8-2.4); PHOSPHOROUS 3.4 mg/dL (2.5-4.9); POTASSIUM 4.5 mmol/L (3.5-5.1); SODIUM 140 mmol/L (136-145)
[2018-09-12] MEDS: FLUTICASONE PROP 0.05% 16 GM NASAL SPRAY NS SCH (09:13)
[2018-09-12] MEDS: ASPIRIN COATED 81 MG TABLET.EC PO SCH (09:13)
[2018-09-12] MEDS: SENNOSIDES/DOCUSATE COMBO (SENNA PLUS) TABLET (UD) PO SCH (09:14)
[2018-09-12] MEDS: METOPROLOL TARTRATE 25 MG TABLET (FP) PO SCH (09:14)
[2018-09-12] MEDS: AZITHROMYCIN IVPB 500 MG/250 ML BAG IVPB SCH (09:14)
[2018-09-12] MEDS: RANITIDINE HCL 150 MG TABLET (FP) PO SCH (09:14)
[2018-09-12] MEDS: HEPARIN NA (PORCINE) 5,000 UNITS/ML 1ML VIAL SQ SCH ×2 (09:14→21:11)
--- NOTE | 2018-09-12 10:23 | PN ---
Progress Note, Physician History of Present Illness: patient stable no new issues wbc marginally down - Current Medication List Current Medications: Active Medications Artificial Tears (Artificial Tears) 1 drop OU BID PRN PRN Reason: DRY SKIN Last Admin: 09/12/18 09:13 Dose: 1 drop Aspirin (Ecotrin -) 81 mg PO DAILY [facility] Last Admin: 09/12/18 09:13 Dose: 81 mg Atorvastatin Calcium (Lipitor -) 10 mg PO HS [facility] Last Admin: 09/11/18 21:01 Dose: 10 mg Fluticasone Propionate (Flonase -) 1 spray NS DAILY [facility] Last Admin: 09/12/18 09:13 Dose: 1 spray Heparin Sodium (Porcine) (Heparin -) 5,000 unit SQ BID [facility] Last Admin: 09/12/18 09:14 Dose: 5,000 unit Azithromycin (Zithromax 500mg Ivpb (Pre-Docked)) 500 mg in 250 mls @ 250 mls/ hr IVPB DAILY [facility] Last Admin: 09/12/18 09:14 Dose: 250 mls/hr Piperacillin Sod/Tazobactam (Sod 3.375 gm/ Dextrose) 50 mls @ 100 mls/hr IVPB Q8H-IV [facility]; Protocol Last Admin: 09/12/18 01:40 Dose: 100 mls/hr Metoprolol Tartrate (Lopressor -) 25 mg PO DAILY [facility] Last Admin: 09/12/18 09:14 Dose: 25 mg Ranitidine HCl (Zantac -) 150 mg PO DAILY [facility] Last Admin: 09/12/18 09:14 Dose: 150 mg Senna/Docusate Sodium (Pericolace -) 1 tablet PO BID [facility] Last Admin: 09/12/18 09:14 Dose: 1 tablet - Objective Vital Signs: Vital Signs Temperature 99.6 F 09/12/18 09:02 Pulse Rate 84 09/12/18 09:02 Respiratory Rate 20 09/12/18 09:02 Blood Pressure 125/68 09/12/18 09:02 O2 Sat by Pulse Oximetry (%) 92 L 09/11/18 21:00 Constitutional: Yes: No Distress, Calm Cardiovascular: Yes: Regular Rate and Rhythm Respiratory: Yes: Regular, CTA Bilaterally Gastrointestinal: Yes: Normal Bowel Sounds, Soft Musculoskeletal: Yes: WNL Extremities: Yes: WNL Neurological: Yes: Alert, Oriented Psychiatric: Yes: Alert, Oriented Labs: CBC, BMP 09/12/18 07:00 09/12/18 07:00 INR, PTT INR 1.23 (0.83-1.09) H 09/08/18 21:10 Assessment/Plan pna leukocytosis htn hld plan continue zosyn incentive estrada monitor wbc rest as per the team
[2018-09-12] MEDS ORDERED: oxyCODONE HCL 5 MG TABLET PO PRN (12:46)
[2018-09-12] MEDS ORDERED: SENNOSIDES 8.6MG TABLET (FP) PO PRN (12:46)
--- NOTE | 2018-09-12 12:50 | PN ---
Progress Note, Physician Chief Complaint: Comfortable doing well remained afebrile - Current Medication List Current Medications: Active Medications Artificial Tears (Artificial Tears) 1 drop OU BID PRN PRN Reason: DRY SKIN Last Admin: 09/12/18 09:13 Dose: 1 drop Aspirin (Ecotrin -) 81 mg PO DAILY [facility] Last Admin: 09/12/18 09:13 Dose: 81 mg Atorvastatin Calcium (Lipitor -) 10 mg PO HS [facility] Last Admin: 09/11/18 21:01 Dose: 10 mg Fluticasone Propionate (Flonase -) 1 spray NS DAILY [facility] Last Admin: 09/12/18 09:13 Dose: 1 spray Heparin Sodium (Porcine) (Heparin -) 5,000 unit SQ BID [facility] Last Admin: 09/12/18 09:14 Dose: 5,000 unit Azithromycin (Zithromax 500mg Ivpb (Pre-Docked)) 500 mg in 250 mls @ 250 mls/ hr IVPB DAILY [facility] Last Admin: 09/12/18 09:14 Dose: 250 mls/hr Piperacillin Sod/Tazobactam (Sod 3.375 gm/ Dextrose) 50 mls @ 100 mls/hr IVPB Q8H-IV [facility]; Protocol Last Admin: 09/12/18 10:41 Dose: 100 mls/hr Metoprolol Tartrate (Lopressor -) 25 mg PO DAILY [facility] Last Admin: 09/12/18 09:14 Dose: 25 mg Non-Formulary Medication (Famotidine [Pepcid -]) 10 mg PO DAILY [facility] Oxycodone/Acetaminophen (Percocet 5/325 -) combo PO Q4H PRN PRN Reason: PAIN Ranitidine HCl (Zantac -) 150 mg PO DAILY [facility] Last Admin: 09/12/18 09:14 Dose: 150 mg Senna/Docusate Sodium (Pericolace -) 1 tablet PO BID [facility] Last Admin: 09/12/18 09:14 Dose: 1 tablet - Objective Vital Signs: Vital Signs Temperature 99.6 F 09/12/18 09:02 Pulse Rate 84 09/12/18 09:02 Respiratory Rate 20 09/12/18 09:02 Blood Pressure 125/68 09/12/18 09:02 O2 Sat by Pulse Oximetry (%) 93 L 09/12/18 09:00 Constitutional: Well Nourished, No Distress, Anxious HEENT: Mm moist, no anemia, PERRLA EOMI NECK: No JVD No Bruit Cardiovascular: Regular Rate and Rhythm. No: Murmur, Rub Respiratory: Regular, CTA Bilaterally. No: SOB, Tachypnea, Wheezes Gastrointestinal: Yes: WNL, Normal Bowel Sounds, Soft. No: Distention, Tenderness EXT: No Edema feet, no calf tenderness, Pulses +! Neurological: Alert, Oriented Labs: CBC, BMP 09/12/18 07:00 09/12/18 07:00 INR, PTT INR 1.23 (0.83-1.09) H 09/08/18 21:10 Problem List - Problems (1) Community acquired pneumonia Assessment/Plan: on Zosyn and Azithromycine cultures are -ve Code(s): J18.9 - PNEUMONIA, UNSPECIFIED ORGANISM Qualifiers: Laterality: right Lung location: upper lobe of lung Qualified Code(s): J18.1 - Lobar pneumonia, unspecified organism (2) CAD (coronary artery disease) Assessment/Plan: Stable no active issue Code(s): I25.10 - ATHSCL HEART DISEASE OF [place] CORONARY ARTERY W/O ANG PCTRS Qualifiers: [place] vs. transplanted heart: [place] heart Associated angina: without angina (3) GERD (gastroesophageal reflux disease) Assessment/Plan: Comt PPI Code(s): K21.9 - GASTRO-ESOPHAGEAL REFLUX DISEASE WITHOUT ESOPHAGITIS Qualifiers: Esophagitis presence: without esophagitis Qualified Code(s): K21.9 - Gastro -esophageal reflux disease without esophagitis (4) HLD (hyperlipidemia) Assessment/Plan: Cont statin Code(s): E78.5 - HYPERLIPIDEMIA, UNSPECIFIED (5) HTN (hypertension) Assessment/Plan: Well controlled c Code(s): I10 - ESSENTIAL (PRIMARY) HYPERTENSION Qualifiers: Hypertension type: essential hypertension Qualified Code(s): I10 - Essential (primary) hypertension
[2018-09-12] MEDS ORDERED: ACETAMINOPHEN 325 MG TABLET (FP) PO PRN (13:19)
--- NOTE | 2018-09-12 18:05 | EKG ---
Test Reason : Blood Pressure : / mmHG Vent. Rate : 088 BPM Atrial Rate : 088 BPM P-R Int : 144 ms QRS Dur : 128 ms QT Int : 420 ms P-R-T Axes : 064 -13 010 degrees QTc Int : 508 ms NORMAL SINUS RHYTHM RIGHT BUNDLE BRANCH BLOCK ABNORMAL ECG WHEN COMPARED WITH ECG OF 11-SEP-2013 13:42, RIGHT BUNDLE BRANCH BLOCK IS NOW PRESENT Confirmed by MEERA ANDRES, LUKE ([id number]) on 09/12/2018 6:04:58 PM Referred By: Confirmed By:LUKE ESTES MD
[2018-09-12] MEDS: ATORVASTATIN CA 10 MG TABLET (FP) PO SCH (21:10)
[2018-09-13] MEDS: PIPERACILLIN/TAZOB 3.375 GM 3.375 GM in DEXTROSE 5%-WATER - 50 ML IVPB SCH ×3 (02:00→17:31)
[2018-09-13] MEDS ORDERED: PT OWN MED DRAWER 7, Y5N ONE ×2 (04:29→10:01)
[2018-09-13] MEDS ORDERED: DEXTROSE 5%-WATER - 50 ML IVPB ONE ×4 (06:48→20:56)
[2018-09-13] MEDS ORDERED: PIPERACILLIN/TAZOBACTAM 3.375 GM VIAL IVPB ONE ×4 (06:48→20:56)
[2018-09-13] MEDS: ASPIRIN COATED 81 MG TABLET.EC PO SCH (10:13)
[2018-09-13] MEDS: METOPROLOL TARTRATE 25 MG TABLET (FP) PO SCH (10:13)
[2018-09-13] MEDS: RANITIDINE HCL 150 MG TABLET (FP) PO SCH (10:13)
[2018-09-13] MEDS: HEPARIN NA (PORCINE) 5,000 UNITS/ML 1ML VIAL SQ SCH ×2 (10:13→21:01)
[2018-09-13] MEDS: FLUTICASONE PROP 0.05% 16 GM NASAL SPRAY NS SCH (10:16)
[2018-09-13] MEDS: AZITHROMYCIN IVPB 500 MG/250 ML BAG IVPB SCH (10:17)
[2018-09-13] MEDS: ARTIFICIAL TEARS (POLYVINYL ALCOHOL) OPTH DROPS OU PRN (10:25)
--- NOTE | 2018-09-13 11:51 | PN ---
Progress Note, Physician Chief Complaint: Comfortable doing well remained afebrile - Current Medication List Current Medications: Active Medications Acetaminophen (Tylenol -) 325 mg PO Q4H PRN PRN Reason: PAIN Artificial Tears (Artificial Tears) 1 drop OU BID PRN PRN Reason: DRY SKIN Last Admin: 09/13/18 10:25 Dose: 1 drop Aspirin (Ecotrin -) 81 mg PO DAILY [facility] Last Admin: 09/13/18 10:13 Dose: 81 mg Atorvastatin Calcium (Lipitor -) 10 mg PO HS [facility] Last Admin: 09/12/18 21:10 Dose: 10 mg Fluticasone Propionate (Flonase -) 1 spray NS DAILY [facility] Last Admin: 09/13/18 10:16 Dose: 1 spray Heparin Sodium (Porcine) (Heparin -) 5,000 unit SQ BID [facility] Last Admin: 09/13/18 10:13 Dose: 5,000 unit Piperacillin Sod/Tazobactam (Sod 3.375 gm/ Dextrose) 50 mls @ 100 mls/hr IVPB Q8H-IV [facility]; Protocol Last Admin: 09/13/18 11:38 Dose: 100 mls/hr Metoprolol Tartrate (Lopressor -) 25 mg PO DAILY [facility] Last Admin: 09/13/18 10:13 Dose: 25 mg Oxycodone HCl (Roxicodone -) 5 mg PO Q4H PRN PRN Reason: PAIN- Ranitidine HCl (Zantac -) 75 mg PO DAILY [facility] Last Admin: 09/13/18 10:13 Dose: 75 mg Senna (Senna -) 8.6 tab PO DAILY PRN PRN Reason: CONSTIPATION - Objective Vital Signs: Vital Signs Temperature 100.4 F H 09/13/18 08:39 Pulse Rate 92 H 09/13/18 08:39 Respiratory Rate 20 09/13/18 08:39 Blood Pressure 149/68 09/13/18 08:39 O2 Sat by Pulse Oximetry (%) 93 L 09/12/18 09:00 Constitutional: Well Nourished, No Distress, Anxious HEENT: Mm moist, no anemia, PERRLA EOMI NECK: No JVD No Bruit Cardiovascular: Regular Rate and Rhythm. No: Murmur, Rub Respiratory: Regular, CTA Bilaterally. No: SOB, Tachypnea, Wheezes Gastrointestinal: Yes: WNL, Normal Bowel Sounds, Soft. No: Distention, Tenderness EXT: No Edema feet, no calf tenderness, Pulses +! Neurological: Alert, Oriented Labs: CBC, BMP 09/12/18 07:00 09/12/18 07:00 INR, PTT INR 1.23 (0.83-1.09) H 09/08/18 21:10 Problem List - Problems (1) Community acquired pneumonia Assessment/Plan: on Zosyn and Azithromycine cultures are -ve Code(s): J18.9 - PNEUMONIA, UNSPECIFIED ORGANISM Qualifiers: Laterality: right Lung location: upper lobe of lung Qualified Code(s): J18.1 - Lobar pneumonia, unspecified organism (2) CAD (coronary artery disease) Assessment/Plan: Stable no active issue Code(s): I25.10 - ATHSCL HEART DISEASE OF [place] CORONARY ARTERY W/O ANG PCTRS Qualifiers: [place] vs. transplanted heart: [place] heart Associated angina: without angina (3) GERD (gastroesophageal reflux disease) Assessment/Plan: Comt PPI Code(s): K21.9 - GASTRO-ESOPHAGEAL REFLUX DISEASE WITHOUT ESOPHAGITIS Qualifiers: Esophagitis presence: without esophagitis Qualified Code(s): K21.9 - Gastro -esophageal reflux disease without esophagitis (4) HLD (hyperlipidemia) Assessment/Plan: Cont statin Code(s): E78.5 - HYPERLIPIDEMIA, UNSPECIFIED (5) HTN (hypertension) Assessment/Plan: Well controlled c Code(s): I10 - ESSENTIAL (PRIMARY) HYPERTENSION Qualifiers: Hypertension type: essential hypertension Qualified Code(s): I10 - Essential (primary) hypertension
--- NOTE | 2018-09-13 12:23 | PN ---
Progress Note, Physician History of Present Illness: steven stable spiked low grade fevers says she is not getting well - Current Medication List Current Medications: Active Medications Acetaminophen (Tylenol -) 325 mg PO Q4H PRN PRN Reason: PAIN Artificial Tears (Artificial Tears) 1 drop OU BID PRN PRN Reason: DRY SKIN Last Admin: 09/13/18 10:25 Dose: 1 drop Aspirin (Ecotrin -) 81 mg PO DAILY [facility] Last Admin: 09/13/18 10:13 Dose: 81 mg Atorvastatin Calcium (Lipitor -) 10 mg PO HS [facility] Last Admin: 09/12/18 21:10 Dose: 10 mg Fluticasone Propionate (Flonase -) 1 spray NS DAILY [facility] Last Admin: 09/13/18 10:16 Dose: 1 spray Heparin Sodium (Porcine) (Heparin -) 5,000 unit SQ BID [facility] Last Admin: 09/13/18 10:13 Dose: 5,000 unit Piperacillin Sod/Tazobactam (Sod 3.375 gm/ Dextrose) 50 mls @ 100 mls/hr IVPB Q8H-IV [facility]; Protocol Last Admin: 09/13/18 11:38 Dose: 100 mls/hr Metoprolol Tartrate (Lopressor -) 25 mg PO DAILY [facility] Last Admin: 09/13/18 10:13 Dose: 25 mg Oxycodone HCl (Roxicodone -) 5 mg PO Q4H PRN PRN Reason: PAIN- Ranitidine HCl (Zantac -) 75 mg PO DAILY [facility] Last Admin: 09/13/18 10:13 Dose: 75 mg Senna (Senna -) 8.6 tab PO DAILY PRN PRN Reason: CONSTIPATION - Objective Vital Signs: Vital Signs Temperature 100.4 F H 09/13/18 08:39 Pulse Rate 92 H 09/13/18 08:39 Respiratory Rate 20 09/13/18 08:39 Blood Pressure 149/68 09/13/18 08:39 O2 Sat by Pulse Oximetry (%) 93 L 09/12/18 09:00 Constitutional: Yes: No Distress, Calm Cardiovascular: Yes: Regular Rate and Rhythm Respiratory: Yes: Regular, CTA Bilaterally Gastrointestinal: Yes: Normal Bowel Sounds, Soft Musculoskeletal: Yes: WNL Extremities: Yes: WNL Neurological: Yes: Alert, Oriented Psychiatric: Yes: Alert, Oriented Labs: CBC, BMP 09/12/18 07:00 09/12/18 07:00 INR, PTT INR 1.23 (0.83-1.09) H 09/08/18 21:10 Assessment/Plan pna leukocytosis htn hld plan continue zosyn incentive estrada monitor wbc xray chest will get
[2018-09-13 13:16] LABS: BASO % 0.5 % (0-2.0); EOS % 2.9 % (0-4.5); HEMATOCRIT 36.8 % (32.4-45.2); HEMOGLOBIN 12.1 GM/dL (10.7-15.3); LYMPH % 9.6 % (8-40); MCH 30.9 pg (25.7-33.7); MCHC 32.8 g/dl (32.0-36.0); MEAN CELL VOLUME 94.3 fl (80-96); MEAN PLT VOLUME 8.2 fl (7.5-11.1); MONO % 9.5 % (3.8-10.2); NEUT % 77.5 % (42.8-82.8); PLATELET COUNT 354 K/MM3 (134-434); RBC 3.91 M/mm3 (3.60-5.2); RDW 13.7 % (11.6-15.6); WHITE BLOOD COUNT 13.9 K/mm3 (4.0-10.0)
[2018-09-13 13:50] LABS: ANION GAP 9 MMOL/L (8-16); BLOOD UREA NITROGEN 18 mg/dL (7-18); CALCIUM 8.5 mg/dL (8.5-10.1); CHLORIDE 101 mmol/L (98-107); CO2 26 mmol/L (21-32); CREATININE 0.8 mg/dL (0.55-1.3); GLUCOSE,RANDOM 164 mg/dL (74-106); POTASSIUM 4.5 mmol/L (3.5-5.1); SODIUM 135 mmol/L (136-145)
[2018-09-13] MEDS: ATORVASTATIN CA 10 MG TABLET (FP) PO SCH (21:01)
[2018-09-14] MEDS: PIPERACILLIN/TAZOB 3.375 GM 3.375 GM in DEXTROSE 5%-WATER - 50 ML IVPB SCH ×3 (01:55→17:42)
[2018-09-14 07:57] LABS: BASO % 0.6 % (0-2.0); EOS % 5.1 % (0-4.5); HEMATOCRIT 34.3 % (32.4-45.2); HEMOGLOBIN 11.5 GM/dL (10.7-15.3); LYMPH % 12.1 % (8-40); MCH 31.5 pg (25.7-33.7); MCHC 33.5 g/dl (32.0-36.0); MEAN PLT VOLUME 8.5 fl (7.5-11.1); MONO % 12.4 % (3.8-10.2); NEUT % 69.8 % (42.8-82.8); PLATELET COUNT 332 K/MM3 (134-434); RBC 3.65 M/mm3 (3.60-5.2); RDW 13.2 % (11.6-15.6)
[2018-09-14 08:08] LABS: ANION GAP 9 MMOL/L (8-16); BLOOD UREA NITROGEN 16 mg/dL (7-18); CALCIUM 8.5 mg/dL (8.5-10.1); CHLORIDE 105 mmol/L (98-107); CO2 28 mmol/L (21-32); CREATININE 0.6 mg/dL (0.55-1.3); GLUCOSE,RANDOM 107 mg/dL (74-106); POTASSIUM 4.5 mmol/L (3.5-5.1); SODIUM 142 mmol/L (136-145)
[2018-09-14] MEDS ORDERED: PIPERACILLIN/TAZOBACTAM 3.375 GM VIAL IVPB ONE ×2 (09:24→17:33)
[2018-09-14] MEDS ORDERED: PT OWN MED DRAWER 7, Y5N ONE ×2 (09:24→10:11)
[2018-09-14] MEDS ORDERED: DEXTROSE 5%-WATER - 50 ML IVPB ONE ×2 (09:24→17:33)
[2018-09-14] MEDS: RANITIDINE HCL 150 MG TABLET (FP) PO SCH (09:34)
[2018-09-14] MEDS: ASPIRIN COATED 81 MG TABLET.EC PO SCH (09:35)
[2018-09-14] MEDS: ARTIFICIAL TEARS (POLYVINYL ALCOHOL) OPTH DROPS OU PRN (09:35)
[2018-09-14] MEDS: METOPROLOL TARTRATE 25 MG TABLET (FP) PO SCH (09:35)
[2018-09-14] MEDS: HEPARIN NA (PORCINE) 5,000 UNITS/ML 1ML VIAL SQ SCH ×2 (09:35→21:06)
[2018-09-14] MEDS: FLUTICASONE PROP 0.05% 16 GM NASAL SPRAY NS SCH (09:36)
--- NOTE | 2018-09-14 10:18 | CON.PULM ---
Consult Consult Specialty:: PULMONARY Referred by:: Dr. Prieto Reason for Consultation:: pneumonia - History of Present Illness Chief Complaint: fever History of Present Illness: 83yo female with h/o HTN, hyperlipidemia, CAD s/p stent who was admitted with fevers and chills x 10 days. Denies chest pain or palpitations. +nonproductive cough without wheezing. Denies history of asthma or COPD, she is a never smoker. No sick contacts or recent travel and no pets at home. Reports generalized weakness and fatigue. Found to have mass like opacities on CXR and CT chest, started on antibiotics but still with some low grade fevers. - History Source History Provided By: Patient, Family Member, Medical Record Limitations to Obtaining History: Language Barrier - Past Medical History Cardio/Vascular: Yes: CAD, HTN, Hyperlipdemia - Alcohol/Substance Use Hx Alcohol Use: No - Smoking History Smoking history: Never smoked Have you smoked in the past 12 months: No Aproximately how many cigarettes per day: 0 - Social History Occupation: Retired History of Recent Travel: No Home Medications - Allergies Allergies/Adverse Reactions: Allergies Allergy/AdvReac Type Severity Reaction Status Date / Time trimethoprim [From Bactrim] Allergy Verified 09/09/18 01:32 - Home Medications Home Medications: Ambulatory Orders Sennosides [Senna] 8.6 mg PO DAILY PRN 09/11/13 Simvastatin [Zocor -] 20 mg PO HS 09/11/13 Metoprolol Tartrate [Lopressor -] 25 mg PO DAILY 02/27/15 Aspirin [Aspirin EC] 81 mg PO DAILY 11/10/15 Calcium Crb,Cit/D3/Min34/Lyla [Citracal + Bone Density Tablet] 1 each PO DAILY 11/10/15 Famotidine [Pepcid -] 10 mg PO DAILY 11/10/15 Multivit-Min/Iron/Folic/Lutein [Centrum Silver Women Tablet] 1 each PO DAILY Oxycodone HCl/Acetaminophen [Percocet 5-325 mg Tablet -] 1 tab PO Q4H PRN #20 tablet 11/13/15 Review of Systems - Review of Systems Constitutional: reports: Chills, Fever, Weakness. denies: Night Sweats, Unintentional Wgt. Loss Eyes: denies: Recent Change in Vision HENT: denies: Nasal Congestion, Throat Pain Neck: denies: Stiffness, Tenderness Cardiovascular: reports: Shortness of Breath. denies: Chest Pain, Edema, Palpitations Respiratory: reports: Cough. denies: Hemoptysis, Wheezing Gastrointestinal: denies: Abdominal Pain, Nausea, Vomiting Genitourinary: denies: Dysuria, Hematuria Neurological: denies: Dizziness, Headache Endocrine: denies: Unexplained Weight Loss Physical Exam Vital Sings: Vital Signs Temperature 99.6 F 09/14/18 06:41 Pulse Rate 88 09/14/18 06:41 Respiratory Rate 20 09/14/18 06:41 Blood Pressure 143/89 09/14/18 06:41 O2 Sat by Pulse Oximetry (%) 92 L 09/13/18 21:00 Constitutional: Yes: Anxious Eyes: Yes: Conjunctiva Clear, EOM Intact HENT: Yes: Atraumatic, Normocephalic Neck: Yes: Supple, Trachea Midline Cardiovascular: Yes: Regular Rate and Rhythm Respiratory: Yes: Diminished (decreased breath sounds at the bases) ...Clubbing: No Gastrointestinal: Yes: Normal Bowel Sounds, Soft. No: Tenderness Edema: No Neurological: Yes: Alert, Oriented Labs: CBC, BMP 09/14/18 07:15 09/14/18 07:15 Imaging - Results Cat Scan: Report Reviewed, Image Reviewed (bilateral mass like consolidations) Problem List - Problems (1) Pneumonia Code(s): J18.9 - PNEUMONIA, UNSPECIFIED ORGANISM Qualifiers: Pneumonia type: due to unspecified organism Laterality: right Lung location: upper lobe of lung Qualified Code(s): J18.1 - Lobar pneumonia, unspecified organism (2) CAD (coronary artery disease) Code(s): I25.10 - ATHSCL HEART DISEASE OF [place] CORONARY ARTERY W/O ANG PCTRS Qualifiers: [place] vs. transplanted heart: [place] heart Associated angina: without angina (3) HLD (hyperlipidemia) Code(s): E78.5 - HYPERLIPIDEMIA, UNSPECIFIED (4) HTN (hypertension) Code(s): I10 - ESSENTIAL (PRIMARY) HYPERTENSION Qualifiers: Hypertension type: essential hypertension Qualified Code(s): I10 - Essential (primary) hypertension Assessment/Plan Pneumonia CAD HTN Hyperlipidemia - continue antibiotics - f/u cultures - will add trial of steroids as consolidations may suggest organizing pneumonia - inhaled bronchodilators - DVT prophylaxis - will need outpt f/u of chest imaging in 4-6 weeks to ensure resolution of consolidations Thank you for this consult Vern Foster MD
--- NOTE | 2018-09-14 11:10 | PN ---
Progress Note, Physician History of Present Illness: continues to do well still very anxious wbc trending down patient comfortable - Current Medication List Current Medications: Active Medications Acetaminophen (Tylenol -) 325 mg PO Q4H PRN PRN Reason: PAIN Artificial Tears (Artificial Tears) 1 drop OU BID PRN PRN Reason: DRY SKIN Last Admin: 09/14/18 09:35 Dose: 1 drop Aspirin (Ecotrin -) 81 mg PO DAILY [facility] Last Admin: 09/14/18 09:35 Dose: 81 mg Atorvastatin Calcium (Lipitor -) 10 mg PO HS [facility] Last Admin: 09/13/18 21:01 Dose: 10 mg Fluticasone Propionate (Flonase -) 1 spray NS DAILY [facility] Last Admin: 09/14/18 09:36 Dose: 1 spray Heparin Sodium (Porcine) (Heparin -) 5,000 unit SQ BID [facility] Last Admin: 09/14/18 09:35 Dose: 5,000 unit Piperacillin Sod/Tazobactam (Sod 3.375 gm/ Dextrose) 50 mls @ 100 mls/hr IVPB Q8H-IV [facility]; Protocol Last Admin: 09/14/18 09:34 Dose: 100 mls/hr Methylprednisolone Sodium Succinate (Solu-Medrol -) 40 mg IVPUSH Q8H-IV [facility] Metoprolol Tartrate (Lopressor -) 25 mg PO DAILY [facility] Last Admin: 09/14/18 09:35 Dose: 25 mg Oxycodone HCl (Roxicodone -) 5 mg PO Q4H PRN PRN Reason: PAIN- Ranitidine HCl (Zantac -) 75 mg PO DAILY [facility] Last Admin: 09/14/18 09:34 Dose: 75 mg Senna (Senna -) 1 tab PO DAILY PRN PRN Reason: CONSTIPATION - Objective Vital Signs: Vital Signs Temperature 99.6 F 09/14/18 06:41 Pulse Rate 88 09/14/18 06:41 Respiratory Rate 20 09/14/18 06:41 Blood Pressure 143/89 09/14/18 06:41 O2 Sat by Pulse Oximetry (%) 92 L 09/13/18 21:00 Constitutional: Yes: No Distress, Calm Cardiovascular: Yes: Regular Rate and Rhythm Respiratory: Yes: Regular, CTA Bilaterally Gastrointestinal: Yes: Normal Bowel Sounds, Soft Musculoskeletal: Yes: WNL Extremities: Yes: WNL Labs: CBC, BMP 09/14/18 07:15 09/14/18 07:15 INR, PTT INR 1.23 (0.83-1.09) H 09/08/18 21:10 Assessment/Plan pna leukocytosis htn hld plan continue zosyn incentive estrada monitor wbc xray findings noted wbc trending down as per pulmonary
[2018-09-14] MEDS: methylPREDNISolone NA SUCC 40 MG/1 ML VIAL IVPUSH SCH ×2 (11:43→17:42)
--- NOTE | 2018-09-14 13:25 | PN ---
Progress Note, Physician Chief Complaint: Pt sitting in bed in no acute distress. Denies any chest pain, sob, cough, n/v/ d - Current Medication List Current Medications: Active Medications Acetaminophen (Tylenol -) 325 mg PO Q4H PRN PRN Reason: PAIN Artificial Tears (Artificial Tears) 1 drop OU BID PRN PRN Reason: DRY SKIN Last Admin: 09/14/18 09:35 Dose: 1 drop Aspirin (Ecotrin -) 81 mg PO DAILY [facility] Last Admin: 09/14/18 09:35 Dose: 81 mg Atorvastatin Calcium (Lipitor -) 10 mg PO HS [facility] Last Admin: 09/13/18 21:01 Dose: 10 mg Fluticasone Propionate (Flonase -) 1 spray NS DAILY [facility] Last Admin: 09/14/18 09:36 Dose: 1 spray Heparin Sodium (Porcine) (Heparin -) 5,000 unit SQ BID [facility] Last Admin: 09/14/18 09:35 Dose: 5,000 unit Piperacillin Sod/Tazobactam (Sod 3.375 gm/ Dextrose) 50 mls @ 100 mls/hr IVPB Q8H-IV [facility]; Protocol Last Admin: 09/14/18 09:34 Dose: 100 mls/hr Methylprednisolone Sodium Succinate (Solu-Medrol -) 40 mg IVPUSH Q8H-IV [facility] Last Admin: 09/14/18 11:43 Dose: 40 mg Metoprolol Tartrate (Lopressor -) 25 mg PO DAILY [facility] Last Admin: 09/14/18 09:35 Dose: 25 mg Oxycodone HCl (Roxicodone -) 5 mg PO Q4H PRN PRN Reason: PAIN- Ranitidine HCl (Zantac -) 75 mg PO DAILY [facility] Last Admin: 09/14/18 09:34 Dose: 75 mg Senna (Senna -) 1 tab PO DAILY PRN PRN Reason: CONSTIPATION - Objective Vital Signs: Vital Signs Temperature 99.6 F 09/14/18 06:41 Pulse Rate 88 09/14/18 06:41 Respiratory Rate 20 09/14/18 06:41 Blood Pressure 143/89 09/14/18 06:41 O2 Sat by Pulse Oximetry (%) 92 L 09/13/18 21:00 Constitutional: Yes: Well Nourished, No Distress, Anxious Respiratory: Yes: Regular, Rales (RLL,RML, LLL). No: Accessory Muscle Use, SOB , Tachypnea, Wheezes Gastrointestinal: Yes: WNL, Normal Bowel Sounds, Soft. No: Hematemesis Genitourinary: Yes: WNL Musculoskeletal: Yes: WNL Edema: No Neurological: Yes: WNL, Alert, Oriented Psychiatric: Yes: WNL, Alert, Oriented Labs: CBC, BMP 09/14/18 07:15 09/14/18 07:15 INR, PTT INR 1.23 (0.83-1.09) H 09/08/18 21:10 - ....Imaging Cat Scan: Report Reviewed Assessment/Plan (1) Community acquired pneumonia Assessment/Plan: multilobar chest CT- multiple consolidations O2 sat 92% on RA, low grade temps zosyn day 4 per ID steroid trial per pulm ID/pulm following Code(s): J18.9 - PNEUMONIA, UNSPECIFIED ORGANISM Qualifiers: Laterality: right Lung location: upper lobe of lung Qualified Code(s): J18.1 - Lobar pneumonia, unspecified organism (2) Leukocytosis Assessment/Plan: slight improvement since admission as above Code(s): D72.829 - ELEVATED WHITE BLOOD CELL COUNT, UNSPECIFIED (3) CAD (coronary artery disease) Assessment/Plan: s/p PCI, stent RCA no acute ACS continue asa,bb, statin Code(s): I25.10 - ATHSCL HEART DISEASE OF [place] CORONARY ARTERY W/O ANG PCTRS Qualifiers: [place] vs. transplanted heart: [place] heart Associated angina: without angina (4) HTN (hypertension) Assessment/Plan: controlled continue metoprolol Code(s): I10 - ESSENTIAL (PRIMARY) HYPERTENSION Qualifiers: Hypertension type: essential hypertension Qualified Code(s): I10 - Essential (primary) hypertension (5) HLD (hyperlipidemia) Assessment/Plan: stable continue statin Code(s): E78.5 - HYPERLIPIDEMIA, UNSPECIFIED (6) GERD (gastroesophageal reflux disease) Assessment/Plan: stable continue ranitidine Code(s): K21.9 - GASTRO-ESOPHAGEAL REFLUX DISEASE WITHOUT ESOPHAGITIS Qualifiers: Esophagitis presence: without esophagitis Qualified Code(s): K21.9 - Gastro -esophageal reflux disease without esophagitis Dispo: Home when cleared by ID,pulm
[2018-09-14] MEDS: ATORVASTATIN CA 10 MG TABLET (FP) PO SCH (21:06)
[2018-09-14] MEDS: SENNOSIDES 8.6MG TABLET (FP) PO PRN (21:16)
[2018-09-15] MEDS ORDERED: PIPERACILLIN/TAZOBACTAM 3.375 GM VIAL IVPB ONE ×3 (01:32→17:32)
[2018-09-15] MEDS ORDERED: DEXTROSE 5%-WATER - 50 ML IVPB ONE ×3 (01:32→17:33)
[2018-09-15] MEDS: methylPREDNISolone NA SUCC 40 MG/1 ML VIAL IVPUSH SCH ×3 (01:50→17:50)
[2018-09-15] MEDS: PIPERACILLIN/TAZOB 3.375 GM 3.375 GM in DEXTROSE 5%-WATER - 50 ML IVPB SCH ×3 (01:50→17:50)
[2018-09-15 06:09] LABS: BASO % 0.1 % (0-2.0); HEMATOCRIT 37.4 % (32.4-45.2); LYMPH % 6.6 % (8-40); MCH 30.2 pg (25.7-33.7); MCHC 31.9 g/dl (32.0-36.0); MEAN CELL VOLUME 94.8 fl (80-96); MEAN PLT VOLUME 8.4 fl (7.5-11.1); MONO % 1.9 % (3.8-10.2); NEUT % 91.4 % (42.8-82.8); PLATELET COUNT 340 K/MM3 (134-434); RBC 3.95 M/mm3 (3.60-5.2); RDW 13.4 % (11.6-15.6); WHITE BLOOD COUNT 14.3 K/mm3 (4.0-10.0)
[2018-09-15 06:46] LABS: ANION GAP 7 MMOL/L (8-16); BLOOD UREA NITROGEN 22 mg/dL (7-18); CALCIUM 8.9 mg/dL (8.5-10.1); CHLORIDE 106 mmol/L (98-107); CO2 27 mmol/L (21-32); CREATININE 0.6 mg/dL (0.55-1.3); GLUCOSE,RANDOM 167 mg/dL (74-106); POTASSIUM 4.3 mmol/L (3.5-5.1); SODIUM 140 mmol/L (136-145)
[2018-09-15] MEDS ORDERED: PT OWN MED DRAWER 7, Y5N ONE ×2 (09:24→11:11)
[2018-09-15] MEDS: RANITIDINE HCL 150 MG TABLET (FP) PO SCH (09:32)
[2018-09-15] MEDS: FLUTICASONE PROP 0.05% 16 GM NASAL SPRAY NS SCH (09:32)
[2018-09-15] MEDS: ASPIRIN COATED 81 MG TABLET.EC PO SCH (09:32)
[2018-09-15] MEDS: METOPROLOL TARTRATE 25 MG TABLET (FP) PO SCH (09:44)
[2018-09-15] MEDS: HEPARIN NA (PORCINE) 5,000 UNITS/ML 1ML VIAL SQ SCH ×2 (09:44→21:40)
--- NOTE | 2018-09-15 10:02 | PN ---
Progress Note (short form) - Note Progress Note: PULMONARY Feels about the same as yesterday. +nonproductive cough but no shortness of breath or wheezing. No further fevers. Vital Signs Period Temp Pulse Resp BP Sys/[place] Pulse Ox Last 24 Hr 97.7 F-98.4 F 74-98 18-20 130-162/43-84 92 Gen: NAD at rest Heart: RRR Lung: scattered rales Abd: soft, nontender Ext: + edema CBC, BMP 09/15/18 05:30 09/15/18 05:30 Active Medications Acetaminophen (Tylenol -) 325 mg PO Q4H PRN PRN Reason: PAIN Artificial Tears (Artificial Tears) 1 drop OU BID PRN PRN Reason: DRY SKIN Last Admin: 09/14/18 09:35 Dose: 1 drop Aspirin (Ecotrin -) 81 mg PO DAILY [facility] Last Admin: 09/15/18 09:32 Dose: 81 mg Atorvastatin Calcium (Lipitor -) 10 mg PO HS [facility] Last Admin: 09/14/18 21:06 Dose: 10 mg Fluticasone Propionate (Flonase -) 1 spray NS DAILY [facility] Last Admin: 09/15/18 09:32 Dose: 1 spray Heparin Sodium (Porcine) (Heparin -) 5,000 unit SQ BID [facility] Last Admin: 09/15/18 09:44 Dose: 5,000 unit Piperacillin Sod/Tazobactam (Sod 3.375 gm/ Dextrose) 50 mls @ 100 mls/hr IVPB Q8H-IV [facility]; Protocol Last Admin: 09/15/18 09:33 Dose: 100 mls/hr Methylprednisolone Sodium Succinate (Solu-Medrol -) 40 mg IVPUSH Q8H-IV [facility] Last Admin: 09/15/18 09:32 Dose: 40 mg Metoprolol Tartrate (Lopressor -) 25 mg PO DAILY [facility] Last Admin: 09/15/18 09:44 Dose: 25 mg Oxycodone HCl (Roxicodone -) 5 mg PO Q4H PRN PRN Reason: PAIN- Ranitidine HCl (Zantac -) 75 mg PO DAILY [facility] Last Admin: 09/15/18 09:32 Dose: 75 mg Senna (Senna -) 1 tab PO DAILY PRN PRN Reason: CONSTIPATION Last Admin: 09/14/18 21:16 Dose: 1 tab A/P Pneumonia - ?Organizing CAD HTN Hyperlipidemia - continue antibiotics - f/u cultures - continue medrol at current dose - inhaled bronchodilators - DVT prophylaxis - will need outpt f/u of chest imaging in 4-6 weeks to ensure resolution of consolidations Problem List - Problems (1) Pneumonia Code(s): J18.9 - PNEUMONIA, UNSPECIFIED ORGANISM Qualifiers: Pneumonia type: due to unspecified organism Laterality: right Lung location: upper lobe of lung Qualified Code(s): J18.1 - Lobar pneumonia, unspecified organism (2) CAD (coronary artery disease) Code(s): I25.10 - ATHSCL HEART DISEASE OF [place] CORONARY ARTERY W/O ANG PCTRS Qualifiers: [place] vs. transplanted heart: [place] heart Associated angina: without angina (3) HLD (hyperlipidemia) Code(s): E78.5 - HYPERLIPIDEMIA, UNSPECIFIED (4) HTN (hypertension) Code(s): I10 - ESSENTIAL (PRIMARY) HYPERTENSION Qualifiers: Hypertension type: essential hypertension Qualified Code(s): I10 - Essential (primary) hypertension
[2018-09-15 11:05] LABS: ANISOCYTOSIS 0; MACROCYTOSIS 0; PLATELET ESTIMATE NORMAL
--- NOTE | 2018-09-15 13:33 | PN ---
Progress Note, Physician History of Present Illness: stable doing well comfortable sitting in chair - Current Medication List Current Medications: Active Medications Acetaminophen (Tylenol -) 325 mg PO Q4H PRN PRN Reason: PAIN Artificial Tears (Artificial Tears) 1 drop OU BID PRN PRN Reason: DRY SKIN Last Admin: 09/14/18 09:35 Dose: 1 drop Aspirin (Ecotrin -) 81 mg PO DAILY [facility] Last Admin: 09/15/18 09:32 Dose: 81 mg Atorvastatin Calcium (Lipitor -) 10 mg PO HS [facility] Last Admin: 09/14/18 21:06 Dose: 10 mg Fluticasone Propionate (Flonase -) 1 spray NS DAILY [facility] Last Admin: 09/15/18 09:32 Dose: 1 spray Heparin Sodium (Porcine) (Heparin -) 5,000 unit SQ BID [facility] Last Admin: 09/15/18 09:44 Dose: 5,000 unit Piperacillin Sod/Tazobactam (Sod 3.375 gm/ Dextrose) 50 mls @ 100 mls/hr IVPB Q8H-IV [facility]; Protocol Last Admin: 09/15/18 09:33 Dose: 100 mls/hr Methylprednisolone Sodium Succinate (Solu-Medrol -) 40 mg IVPUSH Q8H-IV [facility] Last Admin: 09/15/18 09:32 Dose: 40 mg Metoprolol Tartrate (Lopressor -) 25 mg PO DAILY [facility] Last Admin: 09/15/18 09:44 Dose: 25 mg Oxycodone HCl (Roxicodone -) 5 mg PO Q4H PRN PRN Reason: PAIN- Ranitidine HCl (Zantac -) 75 mg PO DAILY [facility] Last Admin: 09/15/18 09:32 Dose: 75 mg Senna (Senna -) 1 tab PO DAILY PRN PRN Reason: CONSTIPATION Last Admin: 09/14/18 21:16 Dose: 1 tab - Objective Vital Signs: Vital Signs Temperature 97.7 F 09/15/18 07:17 Pulse Rate 74 09/15/18 07:17 Respiratory Rate 20 09/15/18 07:17 Blood Pressure 162/72 09/15/18 07:17 O2 Sat by Pulse Oximetry (%) 92 L 09/14/18 21:00 Constitutional: Yes: No Distress, Calm Cardiovascular: Yes: Regular Rate and Rhythm Respiratory: Yes: Regular, CTA Bilaterally Gastrointestinal: Yes: Normal Bowel Sounds, Soft Musculoskeletal: Yes: WNL Extremities: Yes: WNL Neurological: Yes: Alert, Oriented Psychiatric: Yes: Alert, Oriented Labs: CBC, BMP 09/15/18 05:30 09/15/18 05:30 INR, PTT INR 1.23 (0.83-1.09) H 09/08/18 21:10 Assessment/Plan pna leukocytosis htn hld plan continue zosyn incentive estrada as per pulmonary will switch to oral by
--- NOTE | 2018-09-15 16:38 | PN ---
Progress Note, Physician Chief Complaint: Pt sitting in bed in no acute distress. diaphoretic overnight. feels pretty much the same. Denies any chest pain, sob, cough, n/v/d - Current Medication List Current Medications: Active Medications Acetaminophen (Tylenol -) 325 mg PO Q4H PRN PRN Reason: PAIN Artificial Tears (Artificial Tears) 1 drop OU BID PRN PRN Reason: DRY SKIN Last Admin: 09/14/18 09:35 Dose: 1 drop Aspirin (Ecotrin -) 81 mg PO DAILY [facility] Last Admin: 09/15/18 09:32 Dose: 81 mg Atorvastatin Calcium (Lipitor -) 10 mg PO HS [facility] Last Admin: 09/14/18 21:06 Dose: 10 mg Fluticasone Propionate (Flonase -) 1 spray NS DAILY [facility] Last Admin: 09/15/18 09:32 Dose: 1 spray Heparin Sodium (Porcine) (Heparin -) 5,000 unit SQ BID [facility] Last Admin: 09/15/18 09:44 Dose: 5,000 unit Piperacillin Sod/Tazobactam (Sod 3.375 gm/ Dextrose) 50 mls @ 100 mls/hr IVPB Q8H-IV [facility]; Protocol Last Admin: 09/15/18 09:33 Dose: 100 mls/hr Methylprednisolone Sodium Succinate (Solu-Medrol -) 40 mg IVPUSH Q8H-IV [facility] Last Admin: 09/15/18 09:32 Dose: 40 mg Metoprolol Tartrate (Lopressor -) 25 mg PO DAILY [facility] Last Admin: 09/15/18 09:44 Dose: 25 mg Oxycodone HCl (Roxicodone -) 5 mg PO Q4H PRN PRN Reason: PAIN- Ranitidine HCl (Zantac -) 75 mg PO DAILY [facility] Last Admin: 09/15/18 09:32 Dose: 75 mg Senna (Senna -) 1 tab PO DAILY PRN PRN Reason: CONSTIPATION Last Admin: 09/14/18 21:16 Dose: 1 tab - Objective Vital Signs: Vital Signs Temperature 98.6 F 09/15/18 14:29 Pulse Rate 70 09/15/18 14:29 Respiratory Rate 18 09/15/18 14:29 Blood Pressure 110/84 09/15/18 14:29 O2 Sat by Pulse Oximetry (%) 92 L 09/15/18 11:00 Constitutional: Yes: Well Nourished, No Distress, Anxious Cardiovascular: Yes: WNL, Regular Rate and Rhythm Respiratory: Yes: Regular, CTA Bilaterally, Rales (RLL, RML). No: Accessory Muscle Use, On Nasal O2, Rhonchi, SOB, Tachypnea, Wheezes Gastrointestinal: Yes: WNL, Normal Bowel Sounds, Soft. No: Distention, Tenderness Genitourinary: Yes: WNL Extremities: Yes: WNL Edema: No Neurological: Yes: WNL, Alert, Oriented Psychiatric: Yes: WNL, Alert, Oriented Labs: CBC, BMP 09/15/18 05:30 09/15/18 05:30 INR, PTT INR 1.23 (0.83-1.09) H 09/08/18 21:10 Assessment/Plan (1) Community acquired pneumonia Assessment/Plan: multilobar chest CT- multiple consolidations O2 sat 92% on RA, low grade temps zosyn day 5 per ID steroid trial per pulm ID/pulm following Code(s): J18.9 - PNEUMONIA, UNSPECIFIED ORGANISM Qualifiers: Laterality: right Lung location: upper lobe of lung Qualified Code(s): J18.1 - Lobar pneumonia, unspecified organism (2) Leukocytosis Assessment/Plan: slight improvement since admission however could be falsely elevated 2/2 steroids as above Code(s): D72.829 - ELEVATED WHITE BLOOD CELL COUNT, UNSPECIFIED (3) CAD (coronary artery disease) Assessment/Plan: s/p PCI, stent RCA no acute ACS continue asa,bb, statin Code(s): I25.10 - ATHSCL HEART DISEASE OF [place] CORONARY ARTERY W/O ANG PCTRS Qualifiers: [place] vs. transplanted heart: [place] heart Associated angina: without angina (4) HTN (hypertension) Assessment/Plan: controlled continue metoprolol Code(s): I10 - ESSENTIAL (PRIMARY) HYPERTENSION Qualifiers: Hypertension type: essential hypertension Qualified Code(s): I10 - Essential (primary) hypertension (5) HLD (hyperlipidemia) Assessment/Plan: stable continue statin Code(s): E78.5 - HYPERLIPIDEMIA, UNSPECIFIED (6) GERD (gastroesophageal reflux disease) Assessment/Plan: stable continue ranitidine Code(s): K21.9 - GASTRO-ESOPHAGEAL REFLUX DISEASE WITHOUT ESOPHAGITIS Qualifiers: Esophagitis presence: without esophagitis Qualified Code(s): K21.9 - Gastro -esophageal reflux disease without esophagitis Dispo: Home when cleared by ID,pulm
[2018-09-15] MEDS: ATORVASTATIN CA 10 MG TABLET (FP) PO SCH (21:40)
[2018-09-15] MEDS: SENNOSIDES 8.6MG TABLET (FP) PO PRN (21:58)
[2018-09-16] MEDS ORDERED: PIPERACILLIN/TAZOBACTAM 3.375 GM VIAL IVPB ONE ×3 (01:22→19:56)
[2018-09-16] MEDS ORDERED: DEXTROSE 5%-WATER - 50 ML IVPB ONE ×3 (01:23→19:56)
[2018-09-16] MEDS: methylPREDNISolone NA SUCC 40 MG/1 ML VIAL IVPUSH SCH ×3 (02:04→17:36)
[2018-09-16] MEDS: PIPERACILLIN/TAZOB 3.375 GM 3.375 GM in DEXTROSE 5%-WATER - 50 ML IVPB SCH ×3 (02:04→19:59)
[2018-09-16] MEDS: ARTIFICIAL TEARS (POLYVINYL ALCOHOL) OPTH DROPS OU PRN ×3 (02:10→22:13)
[2018-09-16 06:27] LABS: BASO % 0.2 % (0-2.0); HEMATOCRIT 37.2 % (32.4-45.2); HEMOGLOBIN 11.9 GM/dL (10.7-15.3); MCH 30.4 pg (25.7-33.7); MCHC 31.9 g/dl (32.0-36.0); MEAN CELL VOLUME 95.2 fl (80-96); MEAN PLT VOLUME 8.6 fl (7.5-11.1); MONO % 2.6 % (3.8-10.2); NEUT % 93.2 % (42.8-82.8); PLATELET COUNT 358 K/MM3 (134-434); RBC 3.91 M/mm3 (3.60-5.2); RDW 13.6 % (11.6-15.6); WHITE BLOOD COUNT 23.9 K/mm3 (4.0-10.0)
[2018-09-16 09:44] LABS: ANISOCYTOSIS 1+; MACROCYTOSIS 1+; PLATELET ESTIMATE NORMAL
[2018-09-16] MEDS ORDERED: PT OWN MED DRAWER 7, Y5N ONE ×8 (10:20→21:10)
[2018-09-16] MEDS: ASPIRIN COATED 81 MG TABLET.EC PO SCH (10:22)
[2018-09-16] MEDS: RANITIDINE HCL 150 MG TABLET (FP) PO SCH (10:22)
[2018-09-16] MEDS: METOPROLOL TARTRATE 25 MG TABLET (FP) PO SCH (10:39)
[2018-09-16] MEDS: FLUTICASONE PROP 0.05% 16 GM NASAL SPRAY NS SCH (10:41)
--- NOTE | 2018-09-16 12:03 | PN ---
Progress Note, Physician History of Present Illness: patient stable no complaints sitting comfortably in chair - Current Medication List Current Medications: Active Medications Acetaminophen (Tylenol -) 325 mg PO Q4H PRN PRN Reason: PAIN Artificial Tears (Artificial Tears) 1 drop OU BID PRN PRN Reason: DRY SKIN Last Admin: 09/16/18 11:34 Dose: 1 drop Aspirin (Ecotrin -) 81 mg PO DAILY [facility] Last Admin: 09/16/18 10:22 Dose: 81 mg Atorvastatin Calcium (Lipitor -) 10 mg PO HS [facility] Last Admin: 09/15/18 21:40 Dose: 10 mg Fluticasone Propionate (Flonase -) 1 spray NS DAILY [facility] Last Admin: 09/16/18 10:41 Dose: 1 spray Piperacillin Sod/Tazobactam (Sod 3.375 gm/ Dextrose) 50 mls @ 100 mls/hr IVPB Q8H-IV [facility]; Protocol Last Admin: 09/16/18 10:22 Dose: 100 mls/hr Methylprednisolone Sodium Succinate (Solu-Medrol -) 40 mg IVPUSH Q8H-IV [facility] Last Admin: 09/16/18 10:22 Dose: 40 mg Metoprolol Tartrate (Lopressor -) 25 mg PO DAILY [facility] Last Admin: 09/16/18 10:39 Dose: 25 mg Oxycodone HCl (Roxicodone -) 5 mg PO Q4H PRN PRN Reason: PAIN- Ranitidine HCl (Zantac -) 75 mg PO DAILY [facility] Last Admin: 09/16/18 10:22 Dose: 75 mg Senna (Senna -) 1 tab PO DAILY PRN PRN Reason: CONSTIPATION Last Admin: 09/15/18 21:58 Dose: 1 tab - Objective Vital Signs: Vital Signs Temperature 97.5 F L 09/16/18 06:36 Pulse Rate 88 09/16/18 10:24 Respiratory Rate 20 09/16/18 06:36 Blood Pressure 129/66 09/16/18 10:24 O2 Sat by Pulse Oximetry (%) 97 09/15/18 20:10 Constitutional: Yes: No Distress, Calm Cardiovascular: Yes: Regular Rate and Rhythm Respiratory: Yes: Regular, CTA Bilaterally Gastrointestinal: Yes: Normal Bowel Sounds, Soft Musculoskeletal: Yes: WNL Extremities: Yes: WNL Neurological: Yes: Alert, Oriented Psychiatric: Yes: Alert, Oriented Labs: CBC, BMP 09/16/18 05:30 09/15/18 05:30 INR, PTT INR 1.23 (0.83-1.09) H 09/08/18 21:10 Assessment/Plan pna leukocytosis htn hld plan continue zosyn incentive estrada as per pulmonary will switch to oral by
--- NOTE | 2018-09-16 13:11 | PN ---
Progress Note, Physician Chief Complaint: Pt sitting in bed in no acute distress. feels fatigued. Denies any chest pain, sob, cough, n/v/d - Current Medication List Current Medications: Active Medications Acetaminophen (Tylenol -) 325 mg PO Q4H PRN PRN Reason: PAIN Artificial Tears (Artificial Tears) 1 drop OU BID PRN PRN Reason: DRY SKIN Last Admin: 09/16/18 11:34 Dose: 1 drop Aspirin (Ecotrin -) 81 mg PO DAILY [facility] Last Admin: 09/16/18 10:22 Dose: 81 mg Atorvastatin Calcium (Lipitor -) 10 mg PO HS [facility] Last Admin: 09/15/18 21:40 Dose: 10 mg Fluticasone Propionate (Flonase -) 1 spray NS DAILY [facility] Last Admin: 09/16/18 10:41 Dose: 1 spray Piperacillin Sod/Tazobactam (Sod 3.375 gm/ Dextrose) 50 mls @ 100 mls/hr IVPB Q8H-IV [facility]; Protocol Last Admin: 09/16/18 10:22 Dose: 100 mls/hr Methylprednisolone Sodium Succinate (Solu-Medrol -) 40 mg IVPUSH Q8H-IV [facility] Last Admin: 09/16/18 10:22 Dose: 40 mg Metoprolol Tartrate (Lopressor -) 25 mg PO DAILY [facility] Last Admin: 09/16/18 10:39 Dose: 25 mg Oxycodone HCl (Roxicodone -) 5 mg PO Q4H PRN PRN Reason: PAIN- Ranitidine HCl (Zantac -) 75 mg PO DAILY [facility] Last Admin: 09/16/18 10:22 Dose: 75 mg Senna (Senna -) 1 tab PO DAILY PRN PRN Reason: CONSTIPATION Last Admin: 09/15/18 21:58 Dose: 1 tab - Objective Vital Signs: Vital Signs Temperature 98.3 F 09/16/18 09:00 Pulse Rate 88 09/16/18 10:00 Respiratory Rate 20 09/16/18 09:00 Blood Pressure 129/66 09/16/18 10:00 O2 Sat by Pulse Oximetry (%) 97 09/15/18 20:10 Constitutional: Yes: Well Nourished, No Distress, Anxious Cardiovascular: Yes: WNL, Regular Rate and Rhythm. No: Murmur, Rub Respiratory: Yes: WNL, Regular, CTA Bilaterally, Rales (mild, improved) Gastrointestinal: Yes: WNL, Normal Bowel Sounds, Soft. No: Distention, Tenderness Genitourinary: Yes: WNL Extremities: Yes: WNL Edema: No Neurological: Yes: WNL, Alert, Oriented Psychiatric: Yes: WNL, Alert, Oriented Labs: CBC, BMP 09/16/18 05:30 09/15/18 05:30 INR, PTT INR 1.23 (0.83-1.09) H 09/08/18 21:10 Assessment/Plan (1) Community acquired pneumonia Assessment/Plan: improving chest CT- multiple consolidations zosyn day 7 per ID steroid trial per pulm ID/pulm following Code(s): J18.9 - PNEUMONIA, UNSPECIFIED ORGANISM Qualifiers: Laterality: right Lung location: upper lobe of lung Qualified Code(s): J18.1 - Lobar pneumonia, unspecified organism (2) Leukocytosis Assessment/Plan: slight improvement since admission however could be falsely elevated 2/2 steroids as above Code(s): D72.829 - ELEVATED WHITE BLOOD CELL COUNT, UNSPECIFIED (3) CAD (coronary artery disease) Assessment/Plan: s/p PCI, stent RCA no acute ACS continue asa,bb, statin Code(s): I25.10 - ATHSCL HEART DISEASE OF [place] CORONARY ARTERY W/O ANG PCTRS Qualifiers: [place] vs. transplanted heart: [place] heart Associated angina: without angina (4) HTN (hypertension) Assessment/Plan: controlled continue metoprolol Code(s): I10 - ESSENTIAL (PRIMARY) HYPERTENSION Qualifiers: Hypertension type: essential hypertension Qualified Code(s): I10 - Essential (primary) hypertension (5) HLD (hyperlipidemia) Assessment/Plan: stable continue statin Code(s): E78.5 - HYPERLIPIDEMIA, UNSPECIFIED (6) GERD (gastroesophageal reflux disease) Assessment/Plan: stable continue ranitidine Code(s): K21.9 - GASTRO-ESOPHAGEAL REFLUX DISEASE WITHOUT ESOPHAGITIS Qualifiers: Esophagitis presence: without esophagitis Qualified Code(s): K21.9 - Gastro -esophageal reflux disease without esophagitis Dispo: Home when cleared by ID,pulm. possibly tomorrow am upon completion of antibx
--- NOTE | 2018-09-16 13:48 | PN ---
Progress Note (short form) - Note Progress Note: ENT pt seen at patient and 's request regarding nose admitted for pneumonia had right nasal crust, removed, notes right nasal irritation after crust removal with fingers PE NAD nose dry right nasal septum, no bleeding crust or infection mouth, oropharynx WNL voice clear and strong, no stridor or respiratory distress Impression: pneumonia chronic rhinitis Recommend; continue medical management of pneumonia nasal saline spray bid, ordered follow-up in office after discharge Og Munoz MD FACS
--- NOTE | 2018-09-16 14:22 | PN ---
Progress Note, Physician History of Present Illness: pulmonary alert,less cough,-sob - Current Medication List Current Medications: Active Medications Acetaminophen (Tylenol -) 325 mg PO Q4H PRN PRN Reason: PAIN Artificial Tears (Artificial Tears) 1 drop OU BID PRN PRN Reason: DRY SKIN Last Admin: 09/16/18 11:34 Dose: 1 drop Aspirin (Ecotrin -) 81 mg PO DAILY [facility] Last Admin: 09/16/18 10:22 Dose: 81 mg Atorvastatin Calcium (Lipitor -) 10 mg PO HS [facility] Last Admin: 09/15/18 21:40 Dose: 10 mg Fluticasone Propionate (Flonase -) 1 spray NS DAILY [facility] Last Admin: 09/16/18 10:41 Dose: 1 spray Piperacillin Sod/Tazobactam (Sod 3.375 gm/ Dextrose) 50 mls @ 100 mls/hr IVPB Q8H-IV [facility]; Protocol Last Admin: 09/16/18 10:22 Dose: 100 mls/hr Methylprednisolone Sodium Succinate (Solu-Medrol -) 40 mg IVPUSH Q8H-IV [facility] Last Admin: 09/16/18 10:22 Dose: 40 mg Metoprolol Tartrate (Lopressor -) 25 mg PO DAILY [facility] Last Admin: 09/16/18 10:39 Dose: 25 mg Ranitidine HCl (Zantac -) 75 mg PO DAILY [facility] Last Admin: 09/16/18 10:22 Dose: 75 mg Senna (Senna -) 1 tab PO DAILY PRN PRN Reason: CONSTIPATION Last Admin: 09/15/18 21:58 Dose: 1 tab Sodium Chloride ([place] Nasal [place] -) 2 spray NS BID [facility] - Objective Vital Signs: Vital Signs Temperature 98.3 F 09/16/18 09:00 Pulse Rate 88 09/16/18 10:00 Respiratory Rate 20 09/16/18 09:00 Blood Pressure 129/66 09/16/18 10:00 O2 Sat by Pulse Oximetry (%) 97 09/15/18 20:10 Constitutional: Yes: Well Nourished, Calm Eyes: Yes: WNL HENT: Yes: Nasal Congestion Neck: Yes: WNL Cardiovascular: Yes: Regular Rate and Rhythm, S1, S2 Respiratory: Yes: Rales (few crackles) Gastrointestinal: Yes: Normal Bowel Sounds, Soft Extremities: Yes: WNL Edema: Yes Labs: CBC, BMP 09/16/18 05:30 Assessment/Plan A/P Pneumonia - ?Organizing CAD HTN Hyperlipidemia - continue antibiotics - medrol at current dose - inhaled bronchodilators - DVT prophylaxis - will need outpt f/u of chest imaging in 4-6 weeks to ensure resolution of consolidations Problem List - Problems (1) Pneumonia Code(s): J18.9 - PNEUMONIA, UNSPECIFIED ORGANISM Qualifiers: Pneumonia type: due to unspecified organism Laterality: right Lung location: upper lobe of lung Qualified Code(s): J18.1 - Lobar pneumonia, unspecified organism (2) CAD (coronary artery disease) Code(s): I25.10 - ATHSCL HEART DISEASE OF [place] CORONARY ARTERY W/O ANG PCTRS Qualifiers: [place] vs. transplanted heart: [place] heart Associated angina: without angina (3) HLD (hyperlipidemia) Code(s): E78.5 - HYPERLIPIDEMIA, UNSPECIFIED (4) HTN (hypertension) Code(s): I10 - ESSENTIAL (PRIMARY) HYPERTENSION Qualifiers: Hypertension type: essential hypertension Qualified Code(s): I10 - Essential (primary) hypertension
[2018-09-16] MEDS: SODIUM CHLORIDE NASAL SPRAY 44 ML BOTTLE NS SCH ×2 (17:16→22:13)
[2018-09-16] MEDS: ATORVASTATIN CA 10 MG TABLET (FP) PO SCH (22:10)
[2018-09-16] MEDS: SENNOSIDES 8.6MG TABLET (FP) PO PRN (22:51)
[2018-09-17] MEDS ORDERED: DEXTROSE 5%-WATER - 50 ML IVPB ONE ×2 (01:15→09:52)
[2018-09-17] MEDS ORDERED: PIPERACILLIN/TAZOBACTAM 3.375 GM VIAL IVPB ONE ×2 (01:15→09:51)
[2018-09-17] MEDS: PIPERACILLIN/TAZOB 3.375 GM 3.375 GM in DEXTROSE 5%-WATER - 50 ML IVPB SCH ×2 (01:34→10:00)
[2018-09-17] MEDS: methylPREDNISolone NA SUCC 40 MG/1 ML VIAL IVPUSH SCH ×2 (01:34→09:59)
[2018-09-17 07:12] LABS: BASO % 0.3 % (0-2.0); HEMATOCRIT 37.6 % (32.4-45.2); HEMOGLOBIN 12.2 GM/dL (10.7-15.3); LYMPH % 5.7 % (8-40); MCH 30.8 pg (25.7-33.7); MCHC 32.6 g/dl (32.0-36.0); MEAN CELL VOLUME 94.5 fl (80-96); MEAN PLT VOLUME 8.6 fl (7.5-11.1); MONO % 2.3 % (3.8-10.2); NEUT % 91.7 % (42.8-82.8); PLATELET COUNT 381 K/MM3 (134-434); RBC 3.98 M/mm3 (3.60-5.2); RDW 13.7 % (11.6-15.6); WHITE BLOOD COUNT 16.1 K/mm3 (4.0-10.0)
[2018-09-17 07:32] LABS: ANION GAP 9 MMOL/L (8-16); BLOOD UREA NITROGEN 29 mg/dL (7-18); CALCIUM 8.9 mg/dL (8.5-10.1); CHLORIDE 105 mmol/L (98-107); CO2 28 mmol/L (21-32); CREATININE 0.8 mg/dL (0.55-1.3); GLUCOSE,RANDOM 157 mg/dL (74-106); POTASSIUM 5.1 mmol/L (3.5-5.1); SODIUM 143 mmol/L (136-145)
[2018-09-17 09:39] LABS: ACANTHOCYTES 0; ANISOCYTOSIS 0; HELMET CELLS 0; HOWELL-JOLLY BODIES 0; MACROCYTOSIS 0; OVALOCYTE 0; PLATELET ESTIMATE NORMAL; ROULEAU 0; SICKELED CELLS 0; TARGET CELLS 0; TEAR DROP CELLS 0; TOXIC GRANULATION 0
[2018-09-17] MEDS ORDERED: PT OWN MED DRAWER 7, Y5N ONE ×2 (09:56→11:55)
[2018-09-17] MEDS: ASPIRIN COATED 81 MG TABLET.EC PO SCH (09:58)
[2018-09-17] MEDS: RANITIDINE HCL 150 MG TABLET (FP) PO SCH (09:59)
[2018-09-17] MEDS: METOPROLOL TARTRATE 25 MG TABLET (FP) PO SCH (09:59)
[2018-09-17] MEDS: FLUTICASONE PROP 0.05% 16 GM NASAL SPRAY NS SCH (10:00)
[2018-09-17] MEDS: SODIUM CHLORIDE NASAL SPRAY 44 ML BOTTLE NS SCH (10:01)
--- NOTE | 2018-09-17 10:10 | PN ---
Progress Note (short form) - Note Progress Note: PULMONARY Feels slightly improved today. +nonproductive cough but no shortness of breath or wheezing. No further fevers. Vital Signs Period Temp Pulse Resp BP Sys/[place] Pulse Ox Last 24 Hr 97.6 F-98 F 66-80 17-20 135-159/57-72 96-96 Gen: NAD at rest Heart: RRR Lung: decreased breath sounds at the bases Abd: soft, nontender Ext: + edema CBC, BMP 09/17/18 06:00 09/17/18 06:00 Active Medications Acetaminophen (Tylenol -) 325 mg PO Q4H PRN PRN Reason: PAIN Artificial Tears (Artificial Tears) 1 drop OU BID PRN PRN Reason: DRY SKIN Last Admin: 09/16/18 22:13 Dose: 1 drop Aspirin (Ecotrin -) 81 mg PO DAILY [facility] Last Admin: 09/17/18 09:58 Dose: 81 mg Atorvastatin Calcium (Lipitor -) 10 mg PO HS [facility] Last Admin: 09/16/18 22:10 Dose: 10 mg Fluticasone Propionate (Flonase -) 1 spray NS DAILY [facility] Last Admin: 09/17/18 10:00 Dose: 1 spray Piperacillin Sod/Tazobactam (Sod 3.375 gm/ Dextrose) 50 mls @ 100 mls/hr IVPB Q8H-IV [facility]; Protocol Last Admin: 09/17/18 10:00 Dose: 100 mls/hr Methylprednisolone Sodium Succinate (Solu-Medrol -) 40 mg IVPUSH Q8H-IV [facility] Last Admin: 09/17/18 09:59 Dose: 40 mg Metoprolol Tartrate (Lopressor -) 25 mg PO DAILY [facility] Last Admin: 09/17/18 09:59 Dose: 25 mg Ranitidine HCl (Zantac -) 75 mg PO DAILY [facility] Last Admin: 09/17/18 09:59 Dose: 75 mg Senna (Senna -) 1 tab PO DAILY PRN PRN Reason: CONSTIPATION Last Admin: 09/16/18 22:51 Dose: 1 tab Sodium Chloride ([place] Nasal [place] -) 2 spray NS BID [facility] Last Admin: 09/17/18 10:01 Dose: 2 puff A/P Pneumonia - ?Organizing CAD HTN Hyperlipidemia - complete antibiotics - will change steroids to PO prednisone 40mg daily, continue on this dose until seen as outpt - will need antacid when discharged - inhaled bronchodilators - DVT prophylaxis - will need outpt f/u of chest imaging in 4-6 weeks to ensure resolution of consolidations - can be discharged from pulmonary standpoint with outpt f/u Problem List - Problems (1) Pneumonia Code(s): J18.9 - PNEUMONIA, UNSPECIFIED ORGANISM Qualifiers: Pneumonia type: due to unspecified organism Laterality: right Lung location: upper lobe of lung Qualified Code(s): J18.1 - Lobar pneumonia, unspecified organism (2) CAD (coronary artery disease) Code(s): I25.10 - ATHSCL HEART DISEASE OF [place] CORONARY ARTERY W/O ANG PCTRS Qualifiers: [place] vs. transplanted heart: [place] heart Associated angina: without angina (3) HLD (hyperlipidemia) Code(s): E78.5 - HYPERLIPIDEMIA, UNSPECIFIED (4) HTN (hypertension) Code(s): I10 - ESSENTIAL (PRIMARY) HYPERTENSION Qualifiers: Hypertension type: essential hypertension Qualified Code(s): I10 - Essential (primary) hypertension
--- NOTE | 2018-09-17 11:45 | DS ---
Physical Examination Vital Signs: Vital Signs Temperature 97.6 F 09/17/18 09:48 Pulse Rate 80 09/17/18 09:48 Respiratory Rate 20 09/17/18 09:48 Blood Pressure 148/65 09/17/18 09:48 O2 Sat by Pulse Oximetry (%) 96 09/16/18 21:00 Constitutional: Yes: Well Nourished, No Distress, Anxious Cardiovascular: Yes: WNL, Regular Rate and Rhythm Respiratory: Yes: Regular, CTA Bilaterally, Rales (RLL). No: Accessory Muscle Use, Bradypnea, SOB, Tachypnea, Wheezes Gastrointestinal: Yes: WNL, Normal Bowel Sounds, Soft. No: Distention, Tenderness, Vomiting Renal/: Yes: WNL Musculoskeletal: Yes: WNL Extremities: Yes: WNL Edema: No Neurological: Yes: WNL, Alert, Oriented Psychiatric: Yes: WNL, Alert, Oriented Labs: CBC, BMP 09/17/18 06:00 09/17/18 06:00 Discharge Summary Reason For Visit: PNEUMONIA Current Active Problems CAD (coronary artery disease) (Acute) Community acquired pneumonia (Acute) GERD (gastroesophageal reflux disease) (Acute) HLD (hyperlipidemia) (Acute) HTN (hypertension) (Acute) Leukocytosis (Acute) Leukocytosis (Acute) Pneumonia (Acute) Right calf pain (Acute) Hospital Course: is a 83 year old female admitted with multilobar pna. Chest CT revealed b/l consolidations. Pt had low grade temps on azithromycin/ceftriaxone which required advancing therapy. Pt has completed 7 day course of zosyn by ID. Due to lung consolidations, pt received iv steroids, transitioned to po, to continue predisone 40mg daily until f/u w/ pulm. Pt doing well today, vitals stable, satting >92% on RA, labs unremarkable, lung exam improved, wbc count unreliable due to steroids. Pt has been cleared by ID and pulm for discharge home. Pt advised to follow up as directed. Repeat chest imaging in 4-6 weeks to assess resolution. Pt is medically stable for discharge home w/ vns. 35 minutes spent in discharge planning Condition: Stable - Instructions Diet, Activity, Other Instructions: continue meds prednisone 40mg daily until you follow up with pulm, take with food protonix daily will need chest imaging in 4-6weeks f/u as directed Referrals: Corey Morse MD [Staff Physician] - 2 Weeks (if you prefer) Wero Tavarez MD [Staff Physician] - 2 Weeks González Johnson MD [Primary Care Provider] - 1 Week Og Munoz MD [Staff Physician] - 2 Weeks Disposition: VNS/HOME HEALTH CARE - Home Medications Comprehensive Discharge Medication List: Ambulatory Orders Sennosides [Senna] 8.6 mg PO DAILY PRN 09/11/13 Simvastatin [Zocor -] 20 mg PO HS 09/11/13 Metoprolol Tartrate [Lopressor -] 25 mg PO DAILY 02/27/15 Aspirin [Aspirin EC] 81 mg PO DAILY 11/10/15 Calcium Crb,Cit/D3/Min34/Lyla [Citracal + Bone Density Tablet] 1 each PO DAILY 11/10/15 Famotidine [Pepcid -] 10 mg PO DAILY 11/10/15 Multivit-Min/Iron/Folic/Lutein [Centrum Silver Women Tablet] 1 each PO DAILY Oxycodone HCl/Acetaminophen [Percocet 5-325 mg Tablet] 1 tab PO Q4H PRN #20 tablet 11/13/15 Fluticasone Prop 0.05% Nasal [Flonase -] 1 spray NS DAILY spray 09/17/18 Pantoprazole Sodium [Protonix] 40 mg PO DAILY #30 tablet.dr 09/17/18 Polyvinyl Alcohol [Artificial Tears] 1 drop OU BID PRN drops 09/17/18 Prednisone [Deltasone] 40 mg PO DAILY #21 tablet 09/17/18 Sodium Chloride Nasal [place] [[place] Nasal [place] -] 2 spray NS BID #28 spray 09/17/18
[2018-09-17] MEDS: ARTIFICIAL TEARS (POLYVINYL ALCOHOL) OPTH DROPS OU PRN (11:56)
--- NOTE | 2018-09-17 12:54 | PN ---
Progress Note, Physician History of Present Illness: patient stable no complaints sitting comfortably in chair says breathing has improved - Current Medication List Current Medications: Active Medications Acetaminophen (Tylenol -) 325 mg PO Q4H PRN PRN Reason: PAIN Artificial Tears (Artificial Tears) 1 drop OU BID PRN PRN Reason: DRY SKIN Last Admin: 09/17/18 11:56 Dose: 1 drop Aspirin (Ecotrin -) 81 mg PO DAILY [facility] Last Admin: 09/17/18 09:58 Dose: 81 mg Atorvastatin Calcium (Lipitor -) 10 mg PO HS [facility] Last Admin: 09/16/18 22:10 Dose: 10 mg Fluticasone Propionate (Flonase -) 1 spray NS DAILY [facility] Last Admin: 09/17/18 10:00 Dose: 1 spray Piperacillin Sod/Tazobactam (Sod 3.375 gm/ Dextrose) 50 mls @ 100 mls/hr IVPB Q8H-IV [facility]; Protocol Last Admin: 09/17/18 10:00 Dose: 100 mls/hr Metoprolol Tartrate (Lopressor -) 25 mg PO DAILY [facility] Last Admin: 09/17/18 09:59 Dose: 25 mg Ranitidine HCl (Zantac -) 75 mg PO DAILY [facility] Last Admin: 09/17/18 09:59 Dose: 75 mg Senna (Senna -) 1 tab PO DAILY PRN PRN Reason: CONSTIPATION Last Admin: 09/16/18 22:51 Dose: 1 tab Sodium Chloride ([place] Nasal [place] -) 2 spray NS BID [facility] Last Admin: 09/17/18 10:01 Dose: 2 puff - Objective Vital Signs: Vital Signs Temperature 97.6 F 09/17/18 09:48 Pulse Rate 80 09/17/18 09:48 Respiratory Rate 20 09/17/18 09:48 Blood Pressure 148/65 09/17/18 09:48 O2 Sat by Pulse Oximetry (%) 97 09/17/18 09:00 Constitutional: Yes: No Distress, Calm Cardiovascular: Yes: Regular Rate and Rhythm Respiratory: Yes: Regular, CTA Bilaterally Gastrointestinal: Yes: Normal Bowel Sounds, Soft Musculoskeletal: Yes: WNL Extremities: Yes: WNL Neurological: Yes: Alert, Oriented Psychiatric: Yes: Alert, Oriented Labs: CBC, BMP 09/17/18 06:00 09/17/18 06:00 INR, PTT INR 1.23 (0.83-1.09) H 09/08/18 21:10 - ....Imaging Chest X-ray: Report Reviewed, Image Reviewed Assessment/Plan pna leukocytosis htn hld plan stopped all abx incentive [place] as per pulmonary monitor off of abx
[2018-09-17 15:05] VITALS: BP 162/80; PULSE 74; TEMP 97.8
== END 2018-09-17 15:28 | disposition home health service (06) | DRG 195 ==
LOC: JER 17:55 → JERBED 22:27 → OBSVTOIN 23:16 → J8W 09-09 02:25
PROVIDERS: ADMIT Internal Medicine; ATTEND Internal Medicine
DX: J18.1 Lobar pneumonia, unspecified organism (principal); I10 Essential (primary) hypertension; E78.5 Hyperlipidemia, unspecified; I25.2 Old myocardial infarction; I25.10 Atherosclerotic heart disease of native coronary artery without angina pectoris; M79.661 Pain in right lower leg; D72.829 Elevated white blood cell count, unspecified; K21.9 Gastro-esophageal reflux disease without esophagitis; K59.00 Constipation, unspecified; J31.0 Chronic rhinitis; Z86.73 Personal history of transient ischemic attack (TIA), and cerebral infarction without residual deficits
CPT/HCPCS: 36415; 71045-TC-FY; 71250-TC; 80048; 80053; 83735; 84100; 85025; 85610; 85730; 87040; 87086; 87804; 87899; 93005; 93010; 93971-TC; 94010; 97116-GP; 97161-GP; 99285-25; G0378; J1644

== ENCOUNTER 2023-09-05 19:06 | Emergency (ER) | payer OTHER, BC ==
[2023-09-05 19:24] VITALS: PULSE 95; RESP 18; TEMP 98.6; BMI 26.4
[2023-09-05 20:12] LABS: HEMATOCRIT 32.6 % (32.4-45.2); HEMOGLOBIN 10.7 G/dL (10.7-15.3); MCH 31.9 pg (25.7-33.7); MCHC 32.7 g/dl (32.0-36.0); MEAN CELL VOLUME 97.7 fl (80-96); MEAN PLT VOLUME 9.9 fl (7.5-11.1); PLATELET COUNT 95.8 10^3/uL (134-434); RBC 3.34 10^6/uL (3.60-5.2); WHITE BLOOD COUNT 9.8 10^3/uL (4.0-10.8)
[2023-09-05 20:27] LABS: ALBUMIN 3.7 g/dl (3.4-5.0); BILIRUBIN,TOTAL 0.7 mg/dl (0.2-1); BLOOD UREA NITROGEN 31.4 mg/dl (7-18); CREATININE 1.2 mg/dl (0.6-1.3); POTASSIUM 4.3 mmol/L (3.5-5.1); SGOT/AST 19.6 U/L (15-37); SGPT/ALT 9.7 U/L (7-52); TOT PROT 6.5 g/dl (6.4-8.2)
[2023-09-05 21:24] VITALS: BP 143/47
== END 2023-09-05 22:45 | disposition home or self-care (01) ==
LOC: FER 19:06
DX: S30.1XXA Contusion of abdominal wall, initial encounter (principal); R79.89 Other specified abnormal findings of blood chemistry; R07.2 Precordial pain; Z95.4 Presence of other heart-valve replacement; X58.XXXA Exposure to other specified factors, initial encounter
CPT/HCPCS: 36415; 80053; 82550; 84484; 85027; 93005; 99284-25

== ENCOUNTER 2023-09-17 13:01 | Inpatient (IN) | payer OTHER, BC ==
[2023-09-17 13:32] VITALS: BMI 61.9
[2023-09-17] MEDS ORDERED: ACETAMINOPHEN 1000 MG/100 ML BAG IVPB ONE (13:39)
[2023-09-17] MEDS ORDERED: SODIUM CHLORIDE 0.9% 500 ML INFUS.BAG IV ONE (13:39)
[2023-09-17 15:12] LABS: HEMATOCRIT 29.9 % (32.4-45.2); HEMOGLOBIN 9.6 G/dL (10.7-15.3); MCH 30.9 pg (25.7-33.7); MCHC 32.1 g/dl (32.0-36.0); MEAN CELL VOLUME 96.4 fl (80-96); MEAN PLT VOLUME 8.4 fl (7.5-11.1); PLATELET COUNT 186.9 10^3/uL (134-434); RDW 14.3 % (11.6-15.6); WHITE BLOOD COUNT 15.7 10^3/uL (4.0-10.8)
[2023-09-17 15:57] LABS: ALBUMIN 3.6 g/dl (3.4-5.0); BILIRUBIN,TOTAL 0.7 mg/dl (0.2-1); CALCIUM 9.7 mg/dl (8.5-10.1); CREATININE 0.9 mg/dl (0.6-1.3); POTASSIUM 4.7 mmol/L (3.5-5.1); TOT PROT 6.4 g/dl (6.4-8.2)
[2023-09-17] MEDS ORDERED: ACETAMINOPHEN INJECTION 100 ML IVPB ONE (16:25)
[2023-09-17 16:32] LABS: INR 1.08 (0.83-1.09); PROTHROMBIN TIME (PATIENT) 12.5 SEC (9.7-13.0)
[2023-09-17 16:35] LABS: ACTIVATED PTT 21.2 SECONDS (25.2-36.5)
[2023-09-17 16:46] LABS: PLATELET ESTIMATE ADEQUATE
[2023-09-18] MEDS ORDERED: ACETAMINOPHEN 1000 MG/100 ML BAG IVPB ONE (01:53)
[2023-09-18 09:20] LABS: CALCIUM 8.9 mg/dl (8.5-10.1); POTASSIUM 4.3 mmol/L (3.5-5.1)
[2023-09-18 09:43] LABS: BASO % 0.1 % (0-2.0); HEMATOCRIT 26.8 % (32.4-45.2); HEMOGLOBIN 8.9 GM/dL (10.7-15.3); LYMPH % 7.2 % (8-40); MCH 30.5 pg (25.7-33.7); MEAN CELL VOLUME 92.5 fl (80-96); MEAN PLT VOLUME 8.7 fl (7.5-11.1); MONO % 12.2 % (3.8-10.2); NEUT % 80.5 % (42.8-82.8); PLATELET COUNT 181 10^3/uL (134-434); RDW 14.2 % (11.6-15.6); WHITE BLOOD COUNT 11.5 K/mm3 (4.0-10.0)
[2023-09-18] MEDS ORDERED: TETRAHYDROZOLINE HCL EYE DROPS OD PRN (10:18)
[2023-09-18] MEDS ORDERED: REFRIGERATED ANITBIOTICS ONE ×5 (13:17→22:20)
[2023-09-18] MEDS: ACETAMINOPHEN 325 MG TABLET (FP) PO PRN (20:23)
[2023-09-18] MEDS: POLYMYXIN B SULFATE/TMP 10 ML OPHTHALMIC SOLUTION OS SCH (21:36)
[2023-09-18] MEDS ORDERED: ATORVASTATIN CA 40 MG TABLET (FP) PO SCH (22:00)
[2023-09-18] MEDS ORDERED: SENNOSIDES 8.6MG TABLET (FP) PO SCH (22:00)
[2023-09-18] MEDS ORDERED: ASPIRIN COATED 81 MG TABLET.EC PO SCH (22:00)
[2023-09-18] MEDS ORDERED: CHOLECALCIFEROL (VIT D3) 1,000 UNIT (25 MCG) TABLET PO SCH (22:00)
[2023-09-19 06:30] VITALS: RESP 18
[2023-09-19 08:53] LABS: ALBUMIN 3.3 g/dl (3.4-5.0); BILIRUBIN,TOTAL 0.7 mg/dl (0.2-1); CALCIUM 8.9 mg/dl (8.5-10.1); CREATININE 0.8 mg/dl (0.6-1.3); POTASSIUM 4.3 mmol/L (3.5-5.1); TOT PROT 5.8 g/dl (6.4-8.2)
[2023-09-19] MEDS: POLYMYXIN B SULFATE/TMP 10 ML OPHTHALMIC SOLUTION OS SCH ×2 (09:35→14:59)
[2023-09-19] MEDS ORDERED: REFRIGERATED ANITBIOTICS ONE ×5 (09:53→17:10)
[2023-09-19 10:12] VITALS: TEMP 98.2
[2023-09-19 10:13] LABS: BASO % 0.3 % (0-2.0); EOS % 1.1 % (0-4.5); HEMATOCRIT 27.1 % (32.4-45.2); HEMOGLOBIN 9.1 GM/dL (10.7-15.3); LYMPH % 14.3 % (8-40); MCH 31.1 pg (25.7-33.7); MCHC 33.4 g/dl (32.0-36.0); MEAN CELL VOLUME 93.2 fl (80-96); MEAN PLT VOLUME 8.8 fl (7.5-11.1); MONO % 16.6 % (3.8-10.2); NEUT % 67.7 % (42.8-82.8); PLATELET COUNT 176 10^3/uL (134-434); RBC 2.91 M/mm3 (3.60-5.2); RDW 14.2 % (11.6-15.6); WHITE BLOOD COUNT 11.2 K/mm3 (4.0-10.0)
[2023-09-19] MEDS: ACETAMINOPHEN 325 MG TABLET (FP) PO PRN (10:31)
[2023-09-19 14:16] VITALS: BP 144/46; PULSE 79
== END 2023-09-19 18:00 | DRG 552 ==
LOC: FER 13:01 → FM/S 23:23 → OBSVTOIN 09-18 11:57
PROVIDERS: ADMIT Internal Medicine
DX: S12.100A Unspecified displaced fracture of second cervical vertebra, initial encounter for closed fracture (principal); I10 Essential (primary) hypertension; E78.5 Hyperlipidemia, unspecified; K21.9 Gastro-esophageal reflux disease without esophagitis; W19.XXXA Unspecified fall, initial encounter; Y93.9 Activity, unspecified; Y92.89 Other specified places as the place of occurrence of the external cause; Y99.9 Unspecified external cause status
CPT/HCPCS: 0241U-QW; 36415; 70450-TC; 70498-TC; 71046-TC-FY; 72050-TC-FY; 72125-TC; 72170-TC-FY; 73030-TC-LT-FY; 73130-TC-LT-FY; 73562-TC-LT-FY; 80048; 80053; 81003; 84484; 85025; 85027; 85610; 85730; 86850; 86900; 86901; 87086; 93005; 97116-GP; 97162-GP; 99285-25; G0378; Q9967

== ENCOUNTER 2025-04-21 05:54 | Day surgery (SDC) | payer OTHER, BC ==
[2025-04-14 11:39] VITALS: BMI 27.7
[2025-04-21 11:41] VITALS: TEMP 98.5
[2025-04-21 11:53] VITALS: RESP 16
[2025-04-21 12:07] VITALS: BP 125/40; PULSE 66
== END 2025-04-21 12:43 | disposition home or self-care (01) ==
LOC: JASU-ENDO 05:54
PROVIDERS: ATTEND Internal Medicine Gastroenterology
PROC: 0DB68ZX Excision of Stomach, Via Natural or Artificial Opening Endoscopic, Diagnostic (ICD-10-PCS; 2025-04-21)
PROC: 0DJD8ZZ Inspection of Lower Intestinal Tract, Via Natural or Artificial Opening Endoscopic (ICD-10-PCS; principal; 2025-04-21 10:30)
DX: Z12.11 Encounter for screening for malignant neoplasm of colon (principal); K64.8 Other hemorrhoids; D50.9 Iron deficiency anemia, unspecified; Z98.0 Intestinal bypass and anastomosis status; Z85.038 Personal history of other malignant neoplasm of large intestine; K29.00 Acute gastritis without bleeding; K44.9 Diaphragmatic hernia without obstruction or gangrene
CPT/HCPCS: 43239; G0105; 88305-TC; 88342-TC